=== PATIENT | male | born 1950 | race Caucasian/White ===

== ENCOUNTER 2020-11-14 13:57 | Outpatient (REF) | payer MEDICARE, SELFPAY ==
[2020-11-15 12:17] LABS: Free Prostate Spec Ag 0.6 ng/mL; Percent Free Prostate Spec Ag 25 % (calc) (>25); Prostate Specific Ag Total 2.4 ng/mL (< OR = 4.0)
== END 2020-11-14 13:58 | disposition home or self-care (01) ==
LOC: HO.LAB 13:57
PROVIDERS: PCP Internal Medicine; Visit Provider Urology
DX: R97.20 Elevated prostate specific antigen [PSA] (principal); Z12.5 Encounter for screening for malignant neoplasm of prostate
CPT/HCPCS: 84153; 84154

== ENCOUNTER → 2020-11-23 14:33 | Outpatient (BNVA) | payer MEDICARE, SELFPAY | PROVIDERS: PCP Internal Medicine; Referring Provider Internal Medicine; Visit Provider Urology | DX: N40.1 Benign prostatic hyperplasia with lower urinary tract symptoms (principal); N13.8 Other obstructive and reflux uropathy; Z12.5 Encounter for screening for malignant neoplasm of prostate | CPT/HCPCS: Q3014 ==

== ENCOUNTER 2020-11-28 10:34 | Outpatient (REF) | payer MEDICARE, SELFPAY ==
[2020-11-28 12:36] LABS: Anion Gap 12 (12-20); Blood Urea Nitrogen 14 mg/dL (9-16); Calcium 9.2 mg/dL (8.4-10.2); Carbon Dioxide 27 mmol/L (22-29); Chloride 107 mmol/L (96-108); Estimated Glomerular Filt Rate > 60; Phosphorus 2.8 mg/dL (2.7-4.5); Potassium 4.7 mmol/l (3.3-5.1); Sodium 141 mmol/L (135-145)
[2020-11-28 12:46] LABS: Renal w Reflex Lab Use Only Order verified
[2020-11-28 12:47] LABS: Creatinine Urine 156.05 mg/dL; Microalbum/Creatinine Ratio Ur 55.7 ug/mg cr
== END 2020-11-28 10:35 | disposition home or self-care (01) ==
LOC: HO.LAB 10:34
PROVIDERS: PCP Internal Medicine; Visit Provider Internal Medicine Nephrology
DX: N17.9 Acute kidney failure, unspecified (principal); E87.5 Hyperkalemia; I10 Essential (primary) hypertension
CPT/HCPCS: 36415; 80051; 82043; 82310; 82565; 84100; 84520

== ENCOUNTER 2021-04-27 10:39 | Outpatient (REF) | payer MEDICARE, SELFPAY ==
[2021-04-27 13:26] LABS: Alanine Aminotransferase 41 U/L (0-40); Albumin Level 4.6 g/dL (3.5-5.0); Alkaline Phosphatase 91 U/L (39-117); Anion Gap 13 (12-20); Aspartate Amino Transferase 36 U/L (5-37); Bilirubin Total 1.8 mg/dL (0.0-1.0); Blood Urea Nitrogen 14 mg/dL (9-16); Calcium 9.3 mg/dL (8.4-10.2); Carbon Dioxide 25 mmol/L (22-29); Chloride 104 mmol/L (96-108); Estimated Glomerular Filt Rate > 60; Glucose Random 117 mg/dL (60-115); Potassium 4.3 mmol/L (3.3-5.1); Sodium 138 mmol/L (135-145); Total Protein 6.9 g/dL (6.5-8.0)
== END 2021-04-27 10:40 | disposition home or self-care (01) ==
LOC: HO.LAB 10:39
PROVIDERS: PCP Internal Medicine; Visit Provider Internal Medicine
DX: Z00.01 Encounter for general adult medical examination with abnormal findings (principal); R79.89 Other specified abnormal findings of blood chemistry
CPT/HCPCS: 36415; 80053

== ENCOUNTER 2021-05-17 08:15 | Outpatient (REF) | payer MEDICARE, SELFPAY ==
[2021-05-17 09:55] LABS: Prostate Specific Antigen 2.83 ng/mL (<0.05-4.0)
== END 2021-05-17 08:16 | disposition home or self-care (01) ==
LOC: HO.LAB 08:15
PROVIDERS: PCP Internal Medicine; Visit Provider Urology
DX: N40.1 Benign prostatic hyperplasia with lower urinary tract symptoms (principal); N13.8 Other obstructive and reflux uropathy; Z12.5 Encounter for screening for malignant neoplasm of prostate
CPT/HCPCS: 36415; 84153

== ENCOUNTER → 2021-05-23 14:21 | Outpatient (BNVA) | payer MEDICARE, SELFPAY | PROVIDERS: Visit Provider Urology | DX: R97.20 Elevated prostate specific antigen [PSA] (principal); N40.1 Benign prostatic hyperplasia with lower urinary tract symptoms; N13.8 Other obstructive and reflux uropathy; N52.01 Erectile dysfunction due to arterial insufficiency; Z12.5 Encounter for screening for malignant neoplasm of prostate | CPT/HCPCS: 99212 ==

== ENCOUNTER 2021-07-13 08:24 | Outpatient (REF) | payer MEDICARE, SELFPAY ==
[2021-07-13 09:14] LABS: Anion Gap 13 (12-20); Blood Urea Nitrogen 13 mg/dL (9-16); Calcium 9.5 mg/dL (8.4-10.2); Carbon Dioxide 26 mmol/L (22-29); Chloride 108 mmol/L (96-108); Estimated Glomerular Filt Rate > 60; Phosphorus 3.3 mg/dL (2.7-4.5); Potassium 4.6 mmol/L (3.3-5.1); Sodium 142 mmol/L (135-145)
[2021-07-13 09:41] LABS: Renal w Reflex Lab Use Only Order verified
== END 2021-07-13 08:25 | disposition home or self-care (01) ==
LOC: HO.LAB 08:24
PROVIDERS: PCP Internal Medicine; Visit Provider Internal Medicine Nephrology
DX: N17.9 Acute kidney failure, unspecified (principal); E87.5 Hyperkalemia; I10 Essential (primary) hypertension
CPT/HCPCS: 36415; 80051; 82310; 82565; 84100; 84520

== ENCOUNTER 2021-08-01 09:19 | Outpatient (REF) | payer MEDICARE, SELFPAY ==
[2021-08-01 09:44] LABS: MANUAL DIFF FLAG NO
[2021-08-01 09:47] LABS: Basophils Absolute Auto 0.1 X10*3/uL (0.0-0.2); Eosinophils Absolute Auto 0.1 X10*3/uL (0.0-0.4); Eosinophils Percent Auto 1.8 % (0-4); Hemoglobin 15.1 g/dl (14.0-18.0); Imm Gran Abs Auto 0.02 X10*3/uL (0.00-0.03); Imm Gran Pct Auto 0.4 % (0.0-0.4); Lymphocytes Absolute Auto 1.5 X10*3/uL (1.2-4.9); Lymphocytes Percent Auto 29.8 % (20-40); Mean Corpuscular HGB Conc 34.3 g/dl (31.0-36.0); Mean Corpuscular Volume 93.2 fL (80-98); Mean Platelet Volume 8.6 fL (9.4-12.4); Monocytes Absolute Auto 0.6 X10*3/uL (0.1-1.2); Monocytes Percent Auto 12.7 % (2-11); Neutrophils Absolute Auto 2.7 X10*3/uL (2.0-8.3); Neutrophils Percent Auto 54.3 % (45-73); Platelet Count 241 X10*3/uL (160-400); Red Blood Count 4.72 X10*6/uL (4.60-5.80); Red Cell Distribution Width 12.7 % (11.0-16.0)
[2021-08-01 10:09] LABS: Alanine Aminotransferase 43 U/L (0-40); Albumin Level 4.6 g/dL (3.5-5.0); Alkaline Phosphatase 89 U/L (39-117); Anion Gap 14 (12-20); Aspartate Amino Transferase 41 U/L (5-37); Bilirubin Total 2.6 mg/dL (0.0-1.0); Blood Urea Nitrogen 11 mg/dL (9-16); Calcium 9.8 mg/dL (8.4-10.2); Carbon Dioxide 24 mmol/L (22-29); Chloride 105 mmol/L (96-108); Cholesterol 155 mg/dL; Estimated Glomerular Filt Rate > 60; Glucose Random 121 mg/dL (60-115); HDL Cholesterol 73 mg/dL; LDL Cholesterol Calculated 60 mg/dl; Potassium 4.4 mmol/L (3.3-5.1); Sodium 139 mmol/L (135-145); Total Protein 7.2 g/dL (6.5-8.0); Triglycerides 110 mg/dL
[2021-08-01 10:32] LABS: TSH reflex Free T4 1.52 uIU/mL (0.32-4.0); Vitamin D 25-OH Total 28.1 ng/mL (>30)
[2021-08-01 10:41] LABS: Creatinine Urine 129.31 mg/dL; Microalbum/Creatinine Ratio Ur 32.4 ug/mg cr
== END 2021-08-01 09:20 | disposition home or self-care (01) ==
LOC: HO.LAB 09:19
PROVIDERS: PCP Internal Medicine; Visit Provider Internal Medicine
DX: Z00.00 Encounter for general adult medical examination without abnormal findings (principal); I10 Essential (primary) hypertension; E78.2 Mixed hyperlipidemia; R53.83 Other fatigue; E55.9 Vitamin D deficiency, unspecified
CPT/HCPCS: 36415; 80053; 80061; 82043; 82306; 84443; 85025

== ENCOUNTER 2021-11-21 13:55 | Outpatient (REF) | payer MEDICARE, SELFPAY ==
[2021-11-21 15:35] LABS: PSA,Total (Free>4and<10) 2.14 ng/mL (0.00-4.00)
== END 2021-11-21 13:56 | disposition home or self-care (01) ==
LOC: HO.LAB 13:55
PROVIDERS: PCP Internal Medicine; Visit Provider Urology
DX: Z12.5 Encounter for screening for malignant neoplasm of prostate (principal); N13.8 Other obstructive and reflux uropathy; N40.1 Benign prostatic hyperplasia with lower urinary tract symptoms; R97.20 Elevated prostate specific antigen [PSA]
CPT/HCPCS: 36415; 84153

== ENCOUNTER → 2021-11-28 13:17 | Outpatient (BNVA) | payer MEDICARE, SELFPAY | PROVIDERS: PCP Internal Medicine; Visit Provider Urology | DX: Z13.89 Encounter for screening for other disorder (principal) | CPT/HCPCS: Q3014 ==

== ENCOUNTER 2022-10-22 14:22 | Outpatient (REF) | payer MEDICARE, SELFPAY ==
[2022-10-22 16:19] LABS: Anion Gap 15 (12-20); Blood Urea Nitrogen 20 mg/dL (9-16); Calcium 9.8 mg/dL (8.4-10.2); Carbon Dioxide 23 mmol/L (22-29); Chloride 111 mmol/L (96-108); Estimated Glomerular Filt Rate > 60; Potassium 4.7 mmol/L (3.3-5.1); Sodium 144 mmol/L (135-145)
[2022-10-22 16:29] LABS: Creatinine Urine 216.83 mg/dL; Microalbum/Creatinine Ratio Ur 135.5 ug/mg cr
== END 2022-10-22 14:23 | disposition home or self-care (01) ==
LOC: HO.LAB 14:22
PROVIDERS: PCP Internal Medicine; Visit Provider Internal Medicine Nephrology
DX: I10 Essential (primary) hypertension (principal)
CPT/HCPCS: 36415; 80051; 82043; 82310; 82565; 84520

== ENCOUNTER 2022-12-30 11:17 | Outpatient (REF) | payer MEDICARE, SELFPAY ==
[2022-12-30 12:04] LABS: Hemoglobin 14.6 g/dl (14.0-18.0); Mean Corpuscular Hemoglobin 32.2 pg (27.0-33.0); Mean Corpuscular Volume 94.9 fL (80.0-98.0); Mean Platelet Volume 8.6 fL (9.4-12.4); Platelet Count 243 X10*3/uL (160-400); Red Blood Count 4.53 X10*6/uL (4.60-5.80); White Blood Count 8.5 X10*3/uL (4.8-10.8)
[2022-12-30 12:45] LABS: Alanine Aminotransferase 35 U/L (0-40); Albumin Level 4.5 g/dL (3.5-5.0); Alkaline Phosphatase 95 U/L (39-117); Anion Gap 15 (12-20); Aspartate Amino Transferase 38 U/L (5-37); Bilirubin Total 1.5 mg/dL (0.0-1.0); Blood Urea Nitrogen 18 mg/dL (9-16); Calcium 9.7 mg/dL (8.4-10.2); Carbon Dioxide 23 mmol/L (22-29); Chloride 108 mmol/L (96-108); Cholesterol 191 mg/dL; Estimated Glomerular Filt Rate > 60; Glucose Random 103 mg/dL (60-115); HDL Cholesterol 84 mg/dL; LDL Cholesterol Calculated 92 mg/dl; Potassium 4.7 mmol/L (3.3-5.1); Sodium 141 mmol/L (135-145); Total Protein 6.9 g/dL (6.5-8.0); Triglycerides 75 mg/dL
[2022-12-30 13:01] LABS: Thyroid Stimulating Hormone 1.02 uIU/mL (0.32-4.0)
[2022-12-30 13:02] LABS: Creatinine Urine 196.49 mg/dL; Microalbum/Creatinine Ratio Ur 48.3 ug/mg cr
== END 2022-12-30 11:18 | disposition home or self-care (01) ==
LOC: HO.LAB 11:17
PROVIDERS: PCP Internal Medicine; Visit Provider Internal Medicine
DX: Z00.00 Encounter for general adult medical examination without abnormal findings (principal); R53.83 Other fatigue
CPT/HCPCS: 36415; 80053; 80061; 82043; 84443; 85027

== ENCOUNTER 2023-02-21 11:05 | Emergency (ER) | payer MEDICARE, SELFPAY ==
--- NOTE | ~2023-02-21 | XR_ITS ---
EXAMINATION: XR CHEST CLINICAL INFORMATION: SOB. Coughing up blood since last night COMPARISON: Chest 05/08/2010 TECHNIQUE: 2 views of the chest were obtained. FINDINGS: The lungs are well-expanded and clear. The heart size and pulmonary vascularity is normal. There is mild axial scoliosis dorsal spine. No aggressive lytic or sclerotic process seen. XR/XR chest 2V IMPRESSION: Unremarkable chest exam.
[2023-02-21 11:11] VITALS: BP 150/89; PULSE 74; RESP 18; TEMP 37.3; O2SAT 97; BMI 29.4
--- NOTE | 2023-02-21 11:13 | ED_ITS ---
HPI - General Adult General Chief complaint: Upper Respiratory Symptoms <JOEL Silverman - Last Filed: 02/21/23 12:51> Stated complaint: coughing up blood <JOEL Silverman - Last Filed: 02/21/23 12:51> Time Seen by Provider: 02/21/23 12:40 <JOEL Silverman - Last Filed: 02/21/23 12:51> Source: patient <Kev Quiroga MD - Last Filed: 02/21/23 13:33> Mode of arrival: ambulatory <Kev Quiroga MD - Last Filed: 02/21/23 13:33> Limitations: no limitations <Kev Quiroga MD - Last Filed: 02/21/23 13:33> History of Present Illness HPI narrative: 72-year-old male presents with cough. It is possible that he is coughing up some pink tinge bloody sputum. Is noted on edge shoe and pillow case today. He has had 2 weeks of upper respiratory symptoms including cough mucus production that is yellow in nature. No chest pain or shortness of breath, no fevers or chills. Patient denies any chest pain, night sweats, weight loss. He has had no recent imprisoned or 3rd world country visits. His was ill previously. Patient denies any bleeding or bruising elsewhere. Denies any melanotic stools. There are no clear relieving or exacerbating symptoms. Symptoms are described as mild to moderate nature. <Kev Quiroga MD - Last Filed: 02/21/23 13:33> Related Data Home medications: Home Medications Medication Instructions Recorded Confirmed amlodipine 2.5 mg tablet 2.5 mg PO DAILY 11/23/20 atenolol 50 mg tablet 150 mg PO DAILY 11/23/20 atorvastatin 40 mg tablet 40 mg PO DAILY 11/23/20 citalopram 20 mg tablet 60 mg PO Q OTHER DAY PRN 11/23/20 losartan 100 mg tablet 100 mg PO DAILY 11/23/20 amlodipine 5 mg tablet 5 mg PO DAILY 05/23/21 duloxetine 60 mg capsule,delayed 60 mg PO DAILY 05/23/21 release sertraline 50 mg tablet 50 mg PO DAILY 05/23/21 Previous Rx's Medication Instructions Recorded sildenafil 100 mg tablet 100 mg PO DAILY sexual activity 30 05/03/22 days #30 tabs finasteride 5 mg tablet 5 mg PO DAILY 90 days #90 tabs 12/30/22 azithromycin 250 mg tablet See Rx Instructions PO .COMPLEX #6 02/21/23 tabs <JOEL Silverman - Last Filed: 02/21/23 12:51> Allergies/adverse reactions: Allergies Allergy/AdvReac Type Severity Reaction Status Date / Time No Known Allergies Allergy Verified 11/28/21 13:19 <JOEL Silverman - Last Filed: 02/21/23 12:51> [facility] Social History Social History: Social History Advance Directives: No Advance Directives Information Provided: Yes <JOEL Silverman - Last Filed: 02/21/23 12:51> Physical Exam ED Vital Signs: Vital Signs - 24 hr 02/21/23 11:11 02/21/23 12:16 Temperature 99.1 F 97.8 F Pulse Rate 74 58 Respiratory Rate 18 17 Blood Pressure 150/89 H 158/83 H Pulse Oximetry 97 96 Oxygen Delivery Method Room Air Room Air BMI result Body Mass Index 29.4 <JOEL Silverman - Last Filed: 02/21/23 12:51> Vital Signs - 24 hr 02/21/23 11:11 02/21/23 12:16 Temperature 99.1 F 97.8 F Pulse Rate 74 58 Respiratory Rate 18 17 Blood Pressure 150/89 H 158/83 H Pulse Oximetry 97 96 Oxygen Delivery Method Room Air Room Air BMI result Body Mass Index 29.4 <Kev Quiroga MD - Last Filed: 02/21/23 13:33> GEN: Well developed, no acute distress, alert, oriented HEENT: Normocephalic, atraumatic, normal external ears, nose appears normal, no oropharyngeal edema or exudates Eyes: Normal to appearance Neck: Supple, no lymphadenopathy Respiratory: Talks in complete sentences, no respiratory distress, clear to auscultation bilaterally Cardiovascular: Regular rate and rhythm, no murmurs rubs or gallops Abdomen: Soft, nontender, nondistended, no guarding, no rebound Back: No CVA tenderness Extremities: No clubbing cyanosis or edema Neurologic: No focal neurologic deficits, cranial nerves 2-12 intact, strength is 5/5 bilaterally, gait normal Skin: No rash <Kev Quiroga MD - Last Filed: 02/21/23 13:33> Course Course Course Narrative: RME performed by Pili Han PA-C. Patient is a 72 year old assigned male at presenting to the emergency department with flu like symptoms and coughing up pink tinged sputum. Labs, imaging, and swab ordered. Patient placed back in the waiting room pending room availability and results. <JOEL Silverman - Last Filed: 02/21/23 12:51> Reevaluation(s) Reevaluation #1: Workup is complete. Chest x-ray revealed no acute cardiopulmonary disease. Lab work was unremarkable for significant elevated white blood cell count or other findings. This was discussed with patient. Will treat for bronchitis given 2 weeks of cough and mucus production. <Kev Quiroga MD - Last Filed: 02/21/23 13:33> Medical Decision Making Medical Decision Making [facility] Narrative: 72-year-old male presents with cough mucus production. Possible is blood tinged. Examination was unremarkable. Differential includes bronchitis, pneumonia, CHF, less likely tuberculosis or lung cancer. Patient will have l aboratory analysis, chest x-ray and re-evaluation. <Kev Quiroga MD - Last Filed: 02/21/23 13:33> Differential Diagnosis Differential Diagnoses: The differential diagnosis associated with the presentation includes (Bronchitis, pneumonia, CHF, tuberculosis, lung cancer, pulmonary mass) <Kev Quiroga MD - Last Filed: 02/21/23 13:33> Admission/Observation Consideration of admission/observation: Escalation of care including admission/observation considered <Kev Quiroga MD - Last Filed: 02/21/23 13:33> Lab Data [facility] Lab Attestation statement: I reviewed the patient's lab results. <Kev Quiroga MD - Last Filed: 02/21/23 13:33> Result Diagrams: 02/21/23 12:08 02/21/23 12:08 <JOEL Silverman - Last Filed: 02/21/23 12:51> Labs: Lab Results 02/21/23 02/21/23 02/21/23 Range/Units 12:08 12:08 12:08 WBC 5.7 (4.8-10.8) X10*3/uL RBC 4.31 L (4.60-5.80) X10*6/uL Hgb 14.0 (14.0-18.0) g/dl Hct 41.3 L (42.0-52.0) % MCV 95.8 (80.0-98.0) fL MCH 32.5 (27.0-33.0) pg MCHC 33.9 (31.0-36.0) g/dl RDW 12.8 (11.0-16.0) % Plt Count 244 (160-400) X10*3/uL MPV 8.6 L (9.4-12.4) fL Immature Gran % (Auto) 0.2 (0.0-0.4) % Neut % (Auto) 67.7 (45-73) % Lymph % (Auto) 18.9 L (20-40) % Nash % (Auto) 10.4 (2-11) % Eos % (Auto) 1.2 (0-4) % Baso % (Auto) 1.6 (0-2) % Lymph # (Auto) 1.1 L (1.2-4.9) X10*3/uL Nash # (Auto) 0.6 (0.1-1.2) X10*3/uL Eos # (Auto) 0.1 (0.0-0.4) X10*3/uL Baso # (Auto) 0.1 (0.0-0.2) X10*3/uL Abs Immat Gran (auto) 0.01 (0.00-0.03) X10*3/uL Absolute Neuts (auto) 3.8 (2.0-8.3) x10*3/uL Absolute Nucleated RBC 0.000 (0.0-0.012) X10*3/uL Nucleated RBC % (auto) 0.0 (0.0-0.2) /100WBC Sodium 141 (135-145) mmol/L Potassium 4.7 (3.3-5.1) mmol/L Chloride 110 H (96-108) mmol/L Carbon Dioxide 23 (22-29) mmol/L Anion Gap 13 (12-20) BUN 20 H (9-16) mg/dL Creatinine 0.81 (0.5-1.4) mg/dL Estim Creat Clear Calc 94.4 Estimated GFR > 60 Random Glucose 98 (60-115) mg/dL Calcium 9.6 (8.4-10.2) mg/dL Magnesium 1.7 (1.6-2.6) mg/dL Total Bilirubin 1.5 H (0.0-1.0) mg/dL AST 45 H (5-37) U/L ALT 39 (0-40) U/L Alkaline Phosphatase 94 (39-117) U/L B-Natriuretic Peptide 76 (<100) pg/mL Total Protein 7.0 (6.5-8.0) g/dL Albumin 4.5 (3.5-5.0) g/dL Influenza Type A (PCR) (Negative) Influenza Type B (PCR) (Negative) RSV RNA Qual (PCR) (Negative) SARS-CoV-2 RNA (RT-PCR) (Negative) 02/21/23 Range/Units 12:08 WBC (4.8-10.8) X10*3/uL RBC (4.60-5.80) X10*6/uL Hgb (14.0-18.0) g/dl Hct (42.0-52.0) % MCV (80.0-98.0) fL MCH (27.0-33.0) pg MCHC (31.0-36.0) g/dl RDW (11.0-16.0) % Plt Count (160-400) X10*3/uL MPV (9.4-12.4) fL Immature Gran % (Auto) (0.0-0.4) % Neut % (Auto) (45-73) % Lymph % (Auto) (20-40) % Nash % (Auto) (2-11) % Eos % (Auto) (0-4) % Baso % (Auto) (0-2) % Lymph # (Auto) (1.2-4.9) X10*3/uL Nash # (Auto) (0.1-1.2) X10*3/uL Eos # (Auto) (0.0-0.4) X10*3/uL Baso # (Auto) (0.0-0.2) X10*3/uL Abs Immat Gran (auto) (0.00-0.03) X10*3/uL Absolute Neuts (auto) (2.0-8.3) x10*3/uL Absolute Nucleated RBC (0.0-0.012) X10*3/uL Nucleated RBC % (auto) (0.0-0.2) /100WBC Sodium (135-145) mmol/L Potassium (3.3-5.1) mmol/L Chloride (96-108) mmol/L Carbon Dioxide (22-29) mmol/L Anion Gap (12-20) BUN (9-16) mg/dL Creatinine (0.5-1.4) mg/dL Estim Creat Clear Calc Estimated GFR Random Glucose (60-115) mg/dL Calcium (8.4-10.2) mg/dL Magnesium (1.6-2.6) mg/dL Total Bilirubin (0.0-1.0) mg/dL AST (5-37) U/L ALT (0-40) U/L Alkaline Phosphatase (39-117) U/L B-Natriuretic Peptide (<100) pg/mL Total Protein (6.5-8.0) g/dL Albumin (3.5-5.0) g/dL Influenza Type A (PCR) NEGATIVE (Negative) Influenza Type B (PCR) NEGATIVE (Negative) RSV RNA Qual (PCR) NEGATIVE (Negative) SARS-CoV-2 RNA (RT-PCR) NEGATIVE (Negative) <JOEL Silverman - Last Filed: 02/21/23 12:51> Lab Results 02/21/23 02/21/23 02/21/23 Range/Units 12:08 12:08 12:08 WBC 5.7 (4.8-10.8) X10*3/uL RBC 4.31 L (4.60-5.80) X10*6/uL Hgb 14.0 (14.0-18.0) g/dl Hct 41.3 L (42.0-52.0) % MCV 95.8 (80.0-98.0) fL MCH 32.5 (27.0-33.0) pg MCHC 33.9 (31.0-36.0) g/dl RDW 12.8 (11.0-16.0) % Plt Count 244 (160-400) X10*3/uL MPV 8.6 L (9.4-12.4) fL Immature Gran % (Auto) 0.2 (0.0-0.4) % Neut % (Auto) 67.7 (45-73) % Lymph % (Auto) 18.9 L (20-40) % Nash % (Auto) 10.4 (2-11) % Eos % (Auto) 1.2 (0-4) % Baso % (Auto) 1.6 (0-2) % Lymph # (Auto) 1.1 L (1.2-4.9) X10*3/uL Nash # (Auto) 0.6 (0.1-1.2) X10*3/uL Eos # (Auto) 0.1 (0.0-0.4) X10*3/uL Baso # (Auto) 0.1 (0.0-0.2) X10*3/uL Abs Immat Gran (auto) 0.01 (0.00-0.03) X10*3/uL Absolute Neuts (auto) 3.8 (2.0-8.3) x10*3/uL Absolute Nucleated RBC 0.000 (0.0-0.012) X10*3/uL Nucleated RBC % (auto) 0.0 (0.0-0.2) /100WBC Sodium 141 (135-145) mmol/L Potassium 4.7 (3.3-5.1) mmol/L Chloride 110 H (96-108) mmol/L Carbon Dioxide 23 (22-29) mmol/L Anion Gap 13 (12-20) BUN 20 H (9-16) mg/dL Creatinine 0.81 (0.5-1.4) mg/dL Estim Creat Clear Calc 94.4 Estimated GFR > 60 Random Glucose 98 (60-115) mg/dL Calcium 9.6 (8.4-10.2) mg/dL Magnesium 1.7 (1.6-2.6) mg/dL Total Bilirubin 1.5 H (0.0-1.0) mg/dL AST 45 H (5-37) U/L ALT 39 (0-40) U/L Alkaline Phosphatase 94 (39-117) U/L B-Natriuretic Peptide 76 (<100) pg/mL Total Protein 7.0 (6.5-8.0) g/dL Albumin 4.5 (3.5-5.0) g/dL Influenza Type A (PCR) (Negative) Influenza Type B (PCR) (Negative) RSV RNA Qual (PCR) (Negative) SARS-CoV-2 RNA (RT-PCR) (Negative) 02/21/23 Range/Units 12:08 WBC (4.8-10.8) X10*3/uL RBC (4.60-5.80) X10*6/uL Hgb (14.0-18.0) g/dl Hct (42.0-52.0) % MCV (80.0-98.0) fL MCH (27.0-33.0) pg MCHC (31.0-36.0) g/dl RDW (11.0-16.0) % Plt Count (160-400) X10*3/uL MPV (9.4-12.4) fL Immature Gran % (Auto) (0.0-0.4) % Neut % (Auto) (45-73) % Lymph % (Auto) (20-40) % Nash % (Auto) (2-11) % Eos % (Auto) (0-4) % Baso % (Auto) (0-2) % Lymph # (Auto) (1.2-4.9) X10*3/uL Nash # (Auto) (0.1-1.2) X10*3/uL Eos # (Auto) (0.0-0.4) X10*3/uL Baso # (Auto) (0.0-0.2) X10*3/uL Abs Immat Gran (auto) (0.00-0.03) X10*3/uL Absolute Neuts (auto) (2.0-8.3) x10*3/uL Absolute Nucleated RBC (0.0-0.012) X10*3/uL Nucleated RBC % (auto) (0.0-0.2) /100WBC Sodium (135-145) mmol/L Potassium (3.3-5.1) mmol/L Chloride (96-108) mmol/L Carbon Dioxide (22-29) mmol/L Anion Gap (12-20) BUN (9-16) mg/dL Creatinine (0.5-1.4) mg/dL Estim Creat Clear Calc Estimated GFR Random Glucose (60-115) mg/dL Calcium (8.4-10.2) mg/dL Magnesium (1.6-2.6) mg/dL Total Bilirubin (0.0-1.0) mg/dL AST (5-37) U/L ALT (0-40) U/L Alkaline Phosphatase (39-117) U/L B-Natriuretic Peptide (<100) pg/mL Total Protein (6.5-8.0) g/dL Albumin (3.5-5.0) g/dL Influenza Type A (PCR) NEGATIVE (Negative) Influenza Type B (PCR) NEGATIVE (Negative) RSV RNA Qual (PCR) NEGATIVE (Negative) SARS-CoV-2 RNA (RT-PCR) NEGATIVE (Negative) <Kev Quiroga MD - Last Filed: 02/21/23 13:33> Independent Interpretation I performed an independent interpretation of an: Plain X-Ray (No acute cardiopulmonary disease) <Kev Quiroga MD - Last Filed: 02/21/23 13:33> Independent Historian Clinical information obtained from an independent historian. History obtained from or confirmed by: Spouse <Kev Quiroga MD - Last Filed: 02/21/23 13:33> Prescription Management I considered prescription management with: Antibiotic <Kev Quiroga MD - Last Filed: 02/21/23 13:33> Discharge Plan Discharge Clinical Impression: Bronchitis <JOEL Silverman - Last Filed: 02/21/23 12:51> Patient Disposition: Home, Self-Care <JOEL Silverman - Last Filed: 02/21/23 12:51> Instructions: Acute Bronchitis (ED) <JOEL Silverman - Last Filed: 02/21/23 12:51> Additional Instructions: You were seen today for presumptive hemoptysis. This is coughing up of blood. Your examination was unremarkable. Chest x-ray did not reveal any pneumonia. It is still possible that this could be a bronchitis infection and after 2 weeks of symptoms, is reasonable to start oral antibiotics. Should her symptoms worsen, develop worsening coughing up of blood or any other concerning symptoms, please return for re-evaluation. <JOEL Silverman - Last Filed: 02/21/23 12:51> Prescriptions: New azithromycin 250 mg tablet See Rx Instructions .ROUTE .COMPLEX Qty: 6 0RF Rx Instructions: For 250 mg dose pack: take 500 mg today (day 1), then 250 mg for 4 days (days 2-5) No Action sildenafil 100 mg tablet 100 mg PO DAILY 30 Days Qty: 30 5RF Rx Instructions: administer 60 minutes before intended activity finasteride 5 mg tablet 5 mg PO DAILY 90 Days Qty: 90 1RF atorvastatin 40 mg tablet 40 mg PO DAILY atenolol 50 mg tablet 150 mg PO DAILY losartan 100 mg tablet 100 mg PO DAILY amlodipine 2.5 mg tablet 2.5 mg PO DAILY citalopram 20 mg tablet 60 mg PO Q OTHER DAY PRN sertraline 50 mg tablet 50 mg PO DAILY amlodipine 5 mg tablet 5 mg PO DAILY duloxetine 60 mg capsule,delayed release(DR/EC) 60 mg PO DAILY <JOEL Silverman - Last Filed: 02/21/23 12:51> Referrals: Koko Cage MD [Primary Care Provider] - 5 days <JOEL Silverman - Last Filed: 02/21/23 12:51> Interventions: ED Discharge Assessment Last Done: 02/21/23 13:16 <JOEL Silverman - Last Filed: 02/21/23 12:51> Discharge Date/Time: 02/21/23 13:17 <JOEL Silverman - Last Filed: 02/21/23 12:51>
[2023-02-21 12:16] VITALS: BP 158/83; PULSE 58; RESP 17; TEMP 36.6; O2SAT 96
[2023-02-21 12:24] LABS: MANUAL DIFF FLAG NO
[2023-02-21 12:25] LABS: Basophils Absolute Auto 0.1 X10*3/uL (0.0-0.2); Basophils Percent Auto 1.6 % (0-2); Eosinophils Absolute Auto 0.1 X10*3/uL (0.0-0.4); Eosinophils Percent Auto 1.2 % (0-4); Hematocrit 41.3 % (42.0-52.0); Imm Gran Abs Auto 0.01 X10*3/uL (0.00-0.03); Imm Gran Pct Auto 0.2 % (0.0-0.4); Lymphocytes Absolute Auto 1.1 X10*3/uL (1.2-4.9); Lymphocytes Percent Auto 18.9 % (20-40); Mean Corpuscular HGB Conc 33.9 g/dl (31.0-36.0); Mean Corpuscular Hemoglobin 32.5 pg (27.0-33.0); Mean Corpuscular Volume 95.8 fL (80.0-98.0); Mean Platelet Volume 8.6 fL (9.4-12.4); Monocytes Absolute Auto 0.6 X10*3/uL (0.1-1.2); Monocytes Percent Auto 10.4 % (2-11); Neutrophils Absolute Auto 3.8 x10*3/uL (2.0-8.3); Neutrophils Percent Auto 67.7 % (45-73); Platelet Count 244 X10*3/uL (160-400); Red Blood Count 4.31 X10*6/uL (4.60-5.80); Red Cell Distribution Width 12.8 % (11.0-16.0); White Blood Count 5.7 X10*3/uL (4.8-10.8)
--- OUTSIDE RECORDS SUMMARY | 2023-02-21 12:32 | XMS_ITS | Continuity of Care Document ---
Author Name Unknown Organization [facility] Address [address] [place] [id number]- Care Team Providers Care Clay Artist Name Role Phone Koko Cage MD Primary Care Physician Encounter [facility] Date(s): 12/07/19 - 12/14/[address] [address]- [facility] Attending Physician: Not on Staff, Attending MD Allergies, Adverse Reactions, Alerts Substance Reaction Severity Status NKA Active Medications acetaminophen 325 mg oral tablet 650 mg, By Mouth, Every 6 hours, Refills 0, Maintenance, 08/08/17 10:35:57 Start Date: 08/08/17 Status: Ordered atenolol 100 mg oral tablet = 100 mg, By Mouth, Daily, 0 Refills, Maintenance, 08/08/17 10:35:31 EDT, Tablet Start Date: 08/08/17 Status: Ordered atorvastatin 40 mg oral tablet 1 tablet = 40 mg, By Mouth, Daily, # 30 tablet, 0 Refills, Maintenance, Tablet Start Date: 02/27/19 Status: Ordered celecoxib 200 mg oral capsule 1 capsule = 200 mg, By Mouth, Daily, # 30 capsule, 0 Refills, Maintenance, 11/05/19 11:39:00 EST, Capsule Start Date: 11/05/19 Stop Date: 12/05/19 Status: Ordered citalopram 20 mg oral tablet 30 mg, By Mouth, Daily, Refills 0, Maintenance, 08/08/17 10:35:47 Start Date: 08/08/17 Status: Ordered docusate sodium 100 mg oral capsule 100 mg, 1, capsule, By Mouth, 2 times a day, # 60 capsule, Refills 0, Tot. Refills 0, Maintenance, 11/05/19 11:40:00 EST, Print Requisition Start Date: 11/05/19 Stop Date: 12/05/19 Status: Ordered doxycycline hyclate 100 mg oral capsule 1 capsule = 100 mg, By Mouth, Daily, for 30 days, # 30 capsule, 3 Refills, Acute 03/29/20 13:53:00 EDT, 11/30/19 13:53:00 EST, Capsule, [id number], 178, cm, 11/30/19 13:41:00 EST, Height, 87, kg, 10/30/19 16:40:00 EST, Dry Weight Start Date: 11/30/19 Stop Date: 03/29/20 Status: Ordered doxycycline hyclate 100 mg oral tablet 1 tablet = 100 mg, By Mouth, 2 times a day, 0 Refills, Maintenance, 11/30/19 13:46:00 EST Start Date: 11/30/19 Status: Ordered losartan 25 mg oral tablet 1 tablet = 25 mg, By Mouth, Daily, # 30 tablet, 0 Refills, Maintenance, 10/31/19 10:35:46 EST, Tablet Start Date: 10/31/19 Status: Ordered Maalox Plus Liquid 30 mL, By Mouth, Every 4 hours, PRN Other, Heartburn, 0 Refills, Maintenance, 11/05/19 11:19:00 EST, Suspension Start Date: 11/05/19 Status: Ordered oxyCODONE 10 mg oral tablet 1 tablet = 10 mg, By Mouth, Every 3 hours, PRN Pain , Moderate, 0 Refills, Maintenance, 11/05/19 11:19:00 EST, Tablet, Partial fill upon patient request Start Date: 11/05/19 Status: Ordered pantoprazole 40 mg oral delayed release tablet = 40 mg, By Mouth, Daily in AM, 0 Refills, Maintenance, 11/05/19 11:19:00 EST, EC Tablet Start Date: 11/05/19 Status: Ordered warfarin 1 mg oral tablet See Instructions, Take 1-10 tablets By Mouth Daily as directed by TIFF[facility], # 150 tablet, 0 Refills, Maintenance, 11/05/19 12:06:00 EST, Tablet Start Date: 11/05/19 Stop Date: 12/05/19 Status: Ordered Problem List Condition Effective Dates Status Health Status Inform ant MRSA bacteremia(Confirmed) Active Localized osteoarthritis of right knee(Confirmed) 08/06/17 Active MRSA infection(Confirmed) Active Therapeutic drug monitoring(Confirmed) Active 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
--- OUTSIDE RECORDS SUMMARY | 2023-02-21 12:32 | XMS_ITS | Continuity of Care Document ---
Author Name Unknown Organization [facility] Address [address] [place] [id number]- Care Team Providers Care Lead Process Engineer Name Role Phone Koko Cage MD Primary Care Physician Encounter [facility] [place] ACCT R [id number] Date(s): 11/30/19 - 12/10/19 [facility] [address] [place] [address]- [facility] Attending Physician: Kleber Palomino Admitting Physician: Admtr, Kleber Referring Physician: Admtr, Ar8 Allergies, Adverse Reactions, Alerts Substance Reaction Severity [...] capsule, Refills 0, Tot. Refills 0, Maintenance, 12/20/19 11:40:00 EST, Print Requisition Start Date: 11/05/19 Stop Date: 12/05/19 Status: Ordered doxycycline hyclate 100 mg oral capsule 1 capsule = 100 mg, By Mouth, Daily, for 30 days, # 30 capsule, 3 Refills, Acute 03/29/20 13:53:00 EDT, 11/30/19 13:53:00 EST, Capsule, [facility][id number], 178, cm, 11/30/19 13:41:00 EST, Height, 87, [...] tablets By Mouth Daily as directed by [facility], # 150 tablet, 0 Refills, Maintenance, 11/05/19 [...]
--- OUTSIDE RECORDS SUMMARY | 2023-02-21 12:32 | XMS_ITS | Continuity of Care Document ---
Author Name Unknown Organization [facility] Address [address] [place] [address]- Care Team Providers Care Director Of Social Work Name Role Phone Koko Cage MD Primary Care Physician Encounter 11/06/19 - 12/16/19 [facility] [address] [place] [address]- [facility] Discharge Disposition: GOALS MET Allergies, Adverse Reactions, Alerts Substance Reaction Severity [...] 03/29/20 13:53:00 EDT, 11/30/19 13:53:00 EST, Capsule, [id number], 178, cm, 11/30/19 13:41:00 EST, Height, 87, [...] bacteremia(Confirmed) Active Localized osteoarthritis of right knee(Confirmed) 9/20/17 Active MRSA infection(Confirmed) Active Therapeutic drug monitoring(Confirmed) Active 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
--- OUTSIDE RECORDS SUMMARY | 2023-02-21 12:32 | XMS_ITS | Continuity of Care Document ---
Author Name Unknown Organization [facility] Address [address] [place] [address]- Care Team Providers Care Director Organizational Name Role Phone Koko Cage MD Primary Care Physician [phone] Encounter [facility] [place] ACCT R [id number] Date(s): 10/12/19 - 02/03/20 [facility] [address] [place] [phone]- [facility] Attending Physician: Guanako Quezada MD Admitting Physician: Guanako Quezada MD Allergies, Adverse Reactions, Alerts Substance Reaction Severity Status NKA Active Medications atenolol 100 mg oral tablet = 100 [...] 08/08/17 10:35:47 Start Date: 08/08/17 Status: Ordered doxycycline hyclate 100 mg oral capsule 1 capsule = 100 mg, By Mouth, Daily, for 30 days, # 30 capsule, 3 Refills, Acute 03/29/20 13:53:00 EDT, 11/30/19 13:53:00 EST, Capsule, [facility] #[id number], 178, cm, 11/30/19 13:41:00 EST, Height, 87, kg, 10/30/19 16:40:00 EST, Dry Weight Start Date: 11/30/19 Stop Date: 03/29/20 Status: Ordered doxycycline hyclate 100 mg oral tablet 1 tablet = 100 mg, By Mouth, 2 times a day, # 60 tablet, 1 Refills, Maintenance, 01/24/20 10:46:00 EDT, [id number], 178, cm, 01/12/20 10:40:00 EST, Height, 87, kg, 10/30/19 16:40:00 EST, Dry Weight Start Date: 01/24/20 Status: Ordered losartan 25 mg oral tablet 1 tablet = 25 mg, By Mouth, Daily, # 30 tablet, 0 Refills, Maintenance, 10/31/19 10:35:46 EST, Tablet Start Date: 10/31/19 Status: Ordered pantoprazole 40 mg oral delayed release tablet = 40 mg, By Mouth, Daily in AM, 0 Refills, Maintenance, 11/05/19 11:19:00 EST, EC Tablet Start Date: 11/05/19 Status: Ordered Problem List Condition Effective Dates Status Health Status Inform ant MRSA bacteremia(Confirmed) Active Localized osteoarthritis of right knee(Confirmed) 08/06/17 Active MRSA infection(Confirmed) Active Therapeutic drug monitoring(Confirmed) Active 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
--- OUTSIDE RECORDS SUMMARY | 2023-02-21 12:32 | XMS_ITS | Continuity of Care Document ---
Author Name Unknown Organization [facility] Address [address] [place] [id number]- Care Team Providers Care Computer Analyst Name Role Phone Koko Cage MD Primary Care Physician [phone] [place] [facility] [place] [id number] Date(s): 01/11/20 - 01/21/20 [facility] [address] [place] [address]- [facility] Attending Physician: AdmKleber babin Admitting Physician: Admtr, Ar8 Referring Physician: Admtr, Ar8 Allergies, Adverse Reactions, [...] 03/29/20 13:53:00 EDT, 11/30/19 13:53:00 EST, Capsule, [facility] #[id number], 178, cm, 11/30/19 13:41:00 EST, Height, 87, [...]
--- OUTSIDE RECORDS SUMMARY | 2023-02-21 12:32 | XMS_ITS | Continuity of Care Document ---
Author Name Unknown Organization [facility] Address [address] [place] [address]- Care Team Providers Care Gyro Mechanic Name Role Phone Koko Cage MD Primary Care Physician [phone] Encounter [facility] [place]CT R [id number] Date(s): 04/25/20 - 06/15/20 [facility] [address] [place] [address]- [facility] Attending Physician: Guanako Quezada MD Admitting Physician: [...] mg, By Mouth, 2 times a day, PATIENT NEEDS TO MAKE FOLLOWUP APPOINTMENT, # 60 tablet, 0 Refills, Maintenance, 03/24/20 14:37:00 EDT, Tablet, [facility] #[id number], 178, cm, 02/11/20 10:34:00 EDT, Height, 87, kg, 10/30/19 16:40:00... 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
--- OUTSIDE RECORDS SUMMARY | 2023-02-21 12:32 | XMS_ITS | Continuity of Care Document ---
Author Name Unknown Organization [facility] Address [address] [place] [address]- Care Team Providers Care Superintendent Plant Name Role Phone Koko Cage MD Primary Care Physician [phone] Encounter [facility] [place] ACCT R [id number] Date(s): 05/16/20 - 06/15/20 [facility] [address] [place] [address]- [facility] Attending Physician: AdmKleber babin Admitting Physician: Admtr, [...] 0 Refills, Maintenance, 03/24/20 14:37:00 EDT, Tablet, [facility] #[id number], 178, cm, 02/11/20 10:34:00 EDT, Height, 87, kg, 10/30/19 16:40:00... Start Date: 03/24/20 Stop Date: 04/19/20 Status: Ordered doxycycline hyclate 100 mg oral tablet 1 tablet = 100 mg, By Mouth, 2 times a day, # 60 tablet, 1 Refills, Maintenance, 01/24/20 10:46:00 EDT, Tablet, [facility] #[id number], 178, cm, 01/12/20 10:40:00 EST, Height, 87, [...]
--- OUTSIDE RECORDS SUMMARY | 2023-02-21 12:32 | XMS_ITS | Continuity of Care Document ---
Author Name Unknown Organization [facility] ter Address [address] [place] [address]- Care Team Providers Care Middle School Pe Teacher Name Role Phone Koko Cage MD Primary Care Physician Encounter [facility] [place] Date(s): 11/15/19 - 11/15/[address] [address]- [facility] Attending Physician: Not on Staff, Attending MD [...] capsule = 200 mg, By Mouth, Daily, 0 Refills, Maintenance, 11/05/19 11:19:00 EST, Capsule Start Date: 11/05/19 Status: Ordered celecoxib 200 mg oral capsule 1 capsule = 200 mg, By Mouth, Daily, # 30 capsule, 0 Refills, Maintenance, 11/05/19 11:39:00 EST, Capsule Start Date: 11/05/19 Stop Date: 12/05/19 Status: Ordered citalopram 20 mg oral tablet 30 mg, By Mouth, Daily, Refills 0, Maintenance, 08/08/17 10:35:47 Start Date: 08/08/17 Status: Ordered Colace Capsule 100 mg, 1, capsule, By Mouth, 2 times a day, Refills 0, Maintenance, 11/05/19 11:19:00 EST Start Date: 11/05/19 Status: Ordered docusate sodium 100 mg oral capsule 100 mg, 1, capsule, By Mouth, 2 times a day, # 60 capsule, Refills 0, Tot. Refills 0, Maintenance, 11/05/19 11:40:00 EST, Print Requisition Start Date: 11/05/19 Stop Date: 12/05/19 Status: Ordered losartan 25 mg oral tablet 1 tablet = 25 mg, By Mouth, Daily, # 30 tablet, 0 Refills, Maintenance, 10/31/19 10:35:46 EST, Tablet Start Date: 10/31/19 Status: Ordered Maalox Plus Liquid 30 mL, By Mouth, Every 4 hours, PRN Other, Heartburn, 0 Refills, Maintenance, 11/05/19 11:19:00 EST, Suspension Start Date: 11/05/19 Status: Ordered Milk of Magnesia Liquid 30 mL, By Mouth, Daily, PRN Constipation, 0 Refills, Maintenance, 11/05/19 11:19:00 EST, Suspension Start Date: 11/05/19 Status: Ordered MiraLax Powder 1 pack/packet = 17 Gm, By Mouth, Daily, 0 Refills, Maintenance, 11/05/19 11:19:00 EST, Powder Start Date: 11/05/19 Status: Ordered oxyCODONE 10 mg oral tablet 1 tablet = 10 mg, By Mouth, Every 3 hours, PRN Pain , Moderate, 0 Refills, Maintenance, 11/05/19 11:19:00 EST, Tablet, Partial fill upon patient request Start Date: 11/05/19 Status: Ordered oxyCODONE 5 mg oral tablet 5 mg, 1, tablet, By Mouth, Every 3 hours, PRN, Refills 0, Tot. Refills 0, Maintenance, Pain , Mild,11/05/19 11:19:00 EST, Partial fill upon patient request Start Date: 11/05/19 Status: Ordered pantoprazole 40 mg oral delayed release tablet = 40 mg, By Mouth, Daily in AM, 0 Refills, Maintenance, 11/05/19 11:19:00 EST, EC Tablet Start Date: 11/05/19 Status: Ordered pantoprazole 40 mg oral delayed release tablet = 40 mg, By Mouth, Daily in AM, # 30 tablet, 0 Refills, Maintenance, 11/05/19 11:45:00 EST, EC Tablet Start Date: 11/05/19 Stop Date: 12/05/19 Status: Ordered senna 187 mg oral tablet 1 tablet = 8.6 mg, By Mouth, Daily at bedtime, 0 Refills, Maintenance, 11/05/19 11:20:00 EST, Tablet Start Date: 11/05/19 Status: Ordered traMADol 50 mg oral tablet 1 tablet = 50 mg, By Mouth, Every 6 hours, PRN Pain , Moderate, 0 Refills, Maintenance, 11/05/19 11:20:00 EST, Tablet Start Date: 11/05/19 Status: Ordered warfarin 1 mg oral tablet See Instructions, Take 1-10 tablets By Mouth Daily as directed by TIFFANY, # 150 tablet, 0 Refills, Maintenance, 11/05/19 12:06:00 EST, Tablet Start Date: 11/05/19 Stop Date: 12/05/19 Status: Ordered warfarin 5 mg oral tablet 1 tablet = 5 mg, By Mouth, Once, 0 Refills, Maintenance, 11/05/19 12:03:00 EST, Tablet Start Date: 11/05/19 Status: Ordered Problem List Condition Effective Dates Status Health Status Inform ant Localized osteoarthritis of right knee(Confirmed) 08/06/17 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
--- OUTSIDE RECORDS SUMMARY | 2023-02-21 12:32 | XMS_ITS | Continuity of Care Document ---
Author Name Unknown Organization [facility] ter Address [address] [place] [address]- Care Team Providers Care Planning Aide Name Role Phone Koko Cage MD Primary Care Physician [phone] Encounter [facility] [place] Date(s): 11/22/19 - 11/22/[address] [address]- [facility] Attending Physician: Not on Staff, Attending MD [...]
--- OUTSIDE RECORDS SUMMARY | 2023-02-21 12:32 | XMS_ITS | Continuity of Care Document ---
Author Name Unknown Organization [facility] ter Address [address] [place] [address]- Care Team Providers Care Engraver Letter Name Role Phone Koko Cage MD Primary Care Physician [phone] En[place] [facility] [place] Date(s): 10/30/19 - 11/05/[address] [address]- [facility] Discharge Disposition: A-Transfer VNA/Home Health Attending Physician: Edwin COOPER, Smith Muñoz Admitting Physician: Ankit Barney MD Referring Physician: Not on Staff, Referring MD Allergies, Adverse Reactions, Alerts Substance Reaction [...] request Start Date: 11/05/19 Status: Ordered oxyCODONE 10 mg oral tablet See Instructions, PRN Pain , Moderate, Take 0.5-1 tablet (5-10 mg) By Mouth Every 3 hours as neededmild to moderate pain, # 56 tablet, 0 Refills, Acute 11/12/19 11:45:00 EST, 11/05/19 11:40:00 EST, Tablet, Partial fill upon patient request Start Date: 11/05/19 Stop Date: 11/12/19 Status: Ordered oxyCODONE 5 mg oral tablet [...] Status: Ordered traMADol 50 mg oral tablet See Instructions, PRN Pain , Moderate, Take 1-2 tablets By Mouth Every 6 hours as needed mild pain,# 56 tablet, 0 Refills, Acute 11/12/19 11:46:00 EST, 11/05/19 11:46:00 EST, Tablet Start Date: 11/05/19 Stop Date: 11/12/19 Status: Ordered warfarin 1 mg oral tablet [...] of prosthetic righ t knee joint(Confirmed) Active Results Orders for Microbiology Reports Name Date Blood Culture 11/02/19 Blood Culture #2 11/02/19 Anaerobic Culture (ANAEROBIC CULTURE) Anaerobic Culture (ANAEROBIC CULTURE) Anaerobic Culture (ANAEROBIC CULTURE) Tissue Culture w/ Gram Smear (TISSUE/BIO PSY CULT.) 11/01/19 Tissue Culture w/ Gram Smear (TISSUE/BIO PSY CULT.) 11/01/19 Tissue Culture w/ Gram Smear (TISSUE/BIO PSY CULT.) 11/01/19 Sterile Body Fluid Culture W/ Gram Smear 10/30/19 Anaerobic Culture (ANAEROBIC CULTURE) Microbiology Reports (Most Recent Ten) TEST:Blood Culture, Second Order STATUS:Unauthenticated BODY SITE: SOURCE:Blood COLLECTED DATE/TIME:11/02/19 8:47 AM Blood Culture, Second Order SPECIMEN DESCRIPTION : BLOOD LAC SPECIAL REQUESTS : NONE CULTURE : NO GROWTH 3 DAYS REPORT STATUS : PRELIMINARY REPORT TEST:Blood Culture STATUS:Unauthenticated BODY SITE: SOURCE:Blood COLLECTED DATE/TIME:11/02/19 3:29 AM Blood Culture SPECIMEN DESCRIPTION : BLOOD LAC SPECIAL REQUESTS : NONE CULTURE : NO GROWTH 3 DAYS REPORT STATUS : PRELIMINARY REPORT TEST:Anaerobic Culture STATUS:Unauthenticated BODY SITE: SOURCE:TISSUE1 COLLECTED DATE/TIME:11/01/19 3:30 PM Anaerobic Culture SPECIMEN DESCRIPTION : TISSUE R KNEES SPECIAL REQUESTS : NONE CULTURE : NO ANAEROBES ISOLATED SO FAR. REPORT STATUS : PRELIMINARY REPORT TEST:Tissue/Biopsy Culture STATUS:Auth (Verified) BODY SITE: SOURCE:TISSUE1 COLLECTED DATE/TIME:11/01/19 3:30 PM Tissue/Biopsy Culture SPECIMEN DESCRIPTION : TISSUE R KNEE SPECIAL REQUESTS : NONE GRAM STAIN : 3+ POLYMORPHONUCLEAR LEUKOCYTES NO ORGANISMS SEEN CULTURE : 1+ STAPHYLOCOCCUS AUREUS, METHICILLIN RESISTANT. METHICILLIN RESISTANT STAPH AUREUS SHOULD BE CONSIDERED CLINICALLY RESISTANT TO ALL BETA-LACTAMS. Result reported to [facility]. CRITICAL VALUE CALLED AND VERIFIED BY READBACK FOR: S.AUREUS, KATHERINE [id number], SW7,TECH 357,11/03/19 @0800. REPORT STATUS : FINAL 11/04/2019 ORGANISM 1+ STAPHYLOCOCCUS AUREUS, METHICILLIN RESISTANT. METHICILLIN RESISTANT STAPH AUREUS SHOULD BE CONSIDERED CLINICALLY RESISTANT TO ALL BETA-LACTAMS. Result reported to [facility]. METHOD MIN. INHIB. CONC. (MCG/ML) CIPROFLOXACIN SUSCEPTIBLE CLINDAMYCIN SUSCEPTIBLE ERYTHROMYCIN RESISTANT INDUCIBLE CLINDAMYCI NEGATIVE LEVOFLOXACIN SUSCEPTIBLE LINEZOLID SUSCEPTIBLE OXACILLIN RESISTANT RIFAMPIN SUSCEPTIBLE RIFAMPIN RIFAMPIN SHOULD NOT BE USED ALONE FOR ANTIMICROBIAL RIFAMPIN THERAPY. TETRACYCLINE SUSCEPTIBLE TRIMETH/SULFAMETHOX SUSCEPTIBLE VANCOMYCIN SUSCEPTIBLE TEST:Tissue/Biopsy Culture STATUS:Auth (Verified) BODY SITE: SOURCE:TISSUE1 COLLECTED DATE/TIME:11/01/19 3:30 PM Tissue/Biopsy Culture SPECIMEN DESCRIPTION : TISSUE R KNEE SPECIAL REQUESTS : NONE GRAM STAIN : 3+ POLYMORPHONUCLEAR LEUKOCYTES 1+ GRAM POSITIVE COCCI CRITICAL VALUE CALLED AND VERIFIED BY READBACK FOR: GRAM STAIN TO [id number] BY TECH 3535 CULTURE : 1+ STAPHYLOCOCCUS AUREUS, METHICILLIN RESISTANT. METHICILLIN RESISTANT STAPH AUREUS SHOULD BE CONSIDERED CLINICALLY RESISTANT TO ALL BETA-LACTAMS. Result reported to [facility]. CRITICAL VALUE CALLED AND VERIFIED BY READBACK FOR: S.AUREUS, KATHERINE [id number],SW7,TECH 357,11/03/19 @0800. REPORT STATUS : FINAL 11/04/2019 ORGANISM 1+ STAPHYLOCOCCUS AUREUS, METHICILLIN RESISTANT. METHICILLIN RESISTANT STAPH AUREUS SHOULD BE CONSIDERED CLINICALLY RESISTANT TO ALL BETA-LACTAMS. Result reported to [facility]. METHOD MIN. INHIB. CONC. (MCG/ML) CIPROFLOXACIN SUSCEPTIBLE CLINDAMYCIN SUSCEPTIBLE ERYTHROMYCIN RESISTANT INDUCIBLE CLINDAMYCI NEGATIVE LEVOFLOXACIN SUSCEPTIBLE LINEZOLID SUSCEPTIBLE OXACILLIN RESISTANT RIFAMPIN SUSCEPTIBLE RIFAMPIN RIFAMPIN SHOULD NOT BE USED ALONE FOR ANTIMICROBIAL RIFAMPIN THERAPY. TETRACYCLINE SUSCEPTIBLE TRIMETH/SULFAMETHOX SUSCEPTIBLE VANCOMYCIN SUSCEPTIBLE TEST:Tissue/Biopsy Culture STATUS:Auth (Verified) BODY SITE: SOURCE:TISSUE1 COLLECTED DATE/TIME:11/01/19 3:30 PM Tissue/Biopsy Culture SPECIMEN DESCRIPTION : TISSUE R KNEES SPECIAL REQUESTS : NONE GRAM STAIN : 3+ POLYMORPHONUCLEAR LEUKOCYTES 1+ GRAM POSITIVE COCCI CRITICAL VALUE CALLED AND VERIFIED BY READBACK FOR: GRAM STAIN TO [id number] BY TECH 3535 CULTURE : 1+ STAPHYLOCOCCUS AUREUS, METHICILLIN RESISTANT. METHICILLIN RESISTANT STAPH AUREUS SHOULD BE CONSIDERED CLINICALLY RESISTANT TO ALL BETA-LACTAMS. Result reported to [facility]. CRITICAL VALUE CALLED AND VERIFIED BY READBACK FOR: S. AUREUS,KATHERINE [id number],7,TECH 357,11/03/19 @0800. REPORT STATUS : FINAL 11/04/2019 ORGANISM 1+ STAPHYLOCOCCUS AUREUS, METHICILLIN RESISTANT. METHICILLIN RESISTANT STAPH AUREUS SHOULD BE CONSIDERED CLINICALLY RESISTANT TO ALL BETA-LACTAMS. Result reported to [facility]. METHOD MIN. INHIB. CONC. (MCG/ML) CIPROFLOXACIN SUSCEPTIBLE CLINDAMYCIN INTERMEDIATE ERYTHROMYCIN RESISTANT INDUCIBLE CLINDAMYCI NEGATIVE LEVOFLOXACIN SUSCEPTIBLE LINEZOLID SUSCEPTIBLE OXACILLIN RESISTANT RIFAMPIN SUSCEPTIBLE RIFAMPIN RIFAMPIN SHOULD NOT BE USED ALONE FOR ANTIMICROBIAL RIFAMPIN THERAPY. TETRACYCLINE SUSCEPTIBLE TRIMETH/SULFAMETHOX SUSCEPTIBLE VANCOMYCIN SUSCEPTIBLE TEST:Anaerobic Culture STATUS:Unauthenticated BODY SITE: SOURCE:TISSUE1 COLLECTED DATE/TIME:11/01/19 3:30 PM Anaerobic Culture SPECIMEN DESCRIPTION : TISSUE R KNEE SPECIAL REQUESTS : NONE CULTURE : NO ANAEROBES ISOLATED SO FAR. REPORT STATUS : PRELIMINARY REPORT TEST:Anaerobic Culture STATUS:Unauthenticated BODY SITE: SOURCE:TISSUE1 COLLECTED DATE/TIME:11/01/19 3:30 PM Anaerobic Culture SPECIMEN DESCRIPTION : TISSUE R KNEE SPECIAL REQUESTS : NONE CULTURE : NO ANAEROBES ISOLATED SO FAR. REPORT STATUS : PRELIMINARY REPORT TEST:Anaerobic Culture STATUS:Unauthenticated BODY SITE: SOURCE:JOINT COLLECTED DATE/TIME:10/30/19 12:00 PM Anaerobic Culture SPECIMEN DESCRIPTION : JOINT FLUID R KNEE SPECIAL REQUESTS : NONE CULTURE : NO ANAEROBES ISOLATED SO FAR. REPORT STATUS : PRELIMINARY REPORT TEST:Sterile Fluid Culture STATUS:Auth (Verified) BODY SITE: SOURCE:JOINT COLLECTED DATE/TIME:10/30/19 12:00 PM Sterile Fluid Culture SPECIMEN DESCRIPTION : JOINT FLUID R KNEE SPECIAL REQUESTS : CRITICAL VALUE CALLED AND VERIFIED BY READBACK FOR: CULTURE REPORT TO [facility] [[email or web address]] [place] [id number], BY TECH 187 AT 1136, 10/31/19. GRAM STAIN : 4+ POLYMORPHONUCLEAR LEUKOCYTES 1+ GRAM POSITIVE COCCI CRITICAL VALUE CALLED AND VERIFIED BY READBACK FOR: GRAM POSITIVE COCCI IN GRAM STAIN TO [facility] ODALSI AVINA, BY TECH 187 AT 1536, 10/30/19. CULTURE : 3+ STAPHYLOCOCCUS AUREUS, METHICILLIN RESISTANT. METHICILLIN RESISTANT STAPH AUREUS SHOULD BE CONSIDERED CLINICALLY RESISTANT TO ALL BETA-LACTAMS. Result reported to [facility]. REPORT STATUS : FINAL 11/01/2019 ORGANISM 3+ STAPHYLOCOCCUS AUREUS, METHICILLIN RESISTANT. METHICILLIN RESISTANT STAPH AUREUS SHOULD BE CONSIDERED CLINICALLY RESISTANT TO ALL BETA-LACTAMS. Result reported to [facility]. METHOD MIN. INHIB. CONC. (MCG/ML) CIPROFLOXACIN SUSCEPTIBLE CLINDAMYCIN SUSCEPTIBLE ERYTHROMYCIN RESISTANT INDUCIBLE CLINDAMYCI NEGATIVE LEVOFLOXACIN SUSCEPTIBLE LINEZOLID SUSCEPTIBLE OXACILLIN RESISTANT RIFAMPIN SUSCEPTIBLE RIFAMPIN RIFAMPIN SHOULD NOT BE USED ALONE FOR ANTIMICROBIAL RIFAMPIN THERAPY. TETRACYCLINE SUSCEPTIBLE TRIMETH/SULFAMETHOX SUSCEPTIBLE VANCOMYCIN SUSCEPTIBLE Radiology Reports * Exam Date Time Procedure Performing Provider Status 11/01/19 6:42 PM Knee 1 or 2 Views Right Randall Mckoy ; Auth (Verified) Notes: (Knee 1 or 2 Views Right) Reason For Exam: Postop RESULT: Knee 1 or 2 Views Right Knee 1 or 2 Views Right, 2 views Reason: Postop; Clinical Question(s): Other:; Implant Position. COMPARISON: Multiple prior right knee radiographs, the most recent of which is dated 10/30/2019. FINDINGS: There has been interval removal of the tibial tray from the previously seen right knee arthroplastywith antibiotic spacer noted. Metallic bj/screw is seen in the tibial medullary cavity, with surrounding density which may reflect cement or intrahepatic material. The femoral component also appearsto have been revised with new density in the medullary cavity of the distal femur, surrounding curvilinear increased density structures. Subcutaneous gas and surgical skin marnie are compatible withthe perioperative state. No acute displaced fracture is seen. IMPRESSION: Revision of the right total knee arthroplasty with placement of antibiotic spacer as above. WSN: [id number] Dictated By: Bronwyn Rdz MD Dictated Date/Time: 11/01/19 7:30 pm Reviewed By: Bronwyn Rdz MD Signed By: Bronwyn Rdz MD Signed Date/Time: 11/01/19 7:30 pm Transcribed By: FEDERICO Transcribed Date/Time: 11/01/19 7:25 pm * Exam Date Time Procedure Performing Provider Status 10/30/19 11:44 AM Knee 1 or 2 Views Right Veronica Salvador; Auth (Verified) Notes: (Knee 1 or 2 Views Right) Reason For Exam: Pain RESULT: Knee 1 or 2 Views Right Knee 1 or 2 Views Right, views Reason: Pain; Clinical Question(s): Fracture; Hx of Present Illness: Pt reports that he has right knee swelling x 2 days- +chronic pain since right TKR 2016 and infection in knee in 2018- Pt feelsfeverish ; Other Objective Findings: alert, color pink, skin w d, resps' regular, sitting in wheelchair, obvious swelling to right knee- unable to visualize in triage d t clothing COMPARISON: 02/28/2019, and dating back to 08/06/2017. FINDINGS: There has been total right knee arthroplasty with patellar resurfacing. The femoral and tibial components appear grossly well seated without periprosthetic fracture or definitive lucencies. No malalignment. Extensive soft tissue swelling about the knee with a large joint effusion present. IMPRESSION: Extensive soft tissue swelling about the knee with large joint effusion. No discrete bony abnormality or periprosthetic abnormality. Recommend aspiration to assess for particle disease or infection. WSN: [id number] Dictated By: Matti Draper MD Dictated Date/Time: 10/30/19 1:22 pm Reviewed By: Matti Draper MD Signed By: Matti Draper MD Signed Date/Time: 10/30/19 1:22 pm Transcribed By: FEDERICO Transcribed Date/Time: 10/30/19 1:19 pm Vital Signs Most recent to oldest [Reference Range]: 1 2 3 Height 178 cm (11/05/19 3:24 PM) 178 cm (11/05/19 7:06 AM) 178 cm (11/05/19 4:01 AM) Weight 87 kg (11/01/19 1:07 PM) 87 kg (10/30/19 4:40 PM) Oxygen Saturation [94-100 %] 98 % (11/05/19 3:24 PM) 98 % (11/05/19 7:06 AM) 97 % (11/05/19 4:01 AM) Pulse Rate [55-90 bpm] 59 bpm (11/05/19 3:24 PM) 66 bpm (11/05/19 8:16 AM) 66 bpm (11/05/19 7:06 AM) Body Mass Index [18.5-24.99] 27.46 *H* (11/01/19 1:07 PM) 27.46 *H* (10/30/19 4:40 PM) Blood Pressure [90-138/55-84 mm Hg] 106/56mm Hg (11/05/19 3:24 PM) 141/71mm Hg *H* (11/05/19 8:16 AM) 141/71mm Hg *H* (11/05/19 7:06 AM) Respiratory Rate [16-30 br/min] 18 br/min (11/05/19 3:24 PM) 20 br/min (11/05/19 12:10 PM) 18 br/min (11/05/19 7:06 AM) Temperature [96.8-100.4 DegF] 98.2 DegF (11/05/19 3:24 PM) 98.2 DegF (11/05/19 7:06 AM) 98.4 DegF (11/05/19 4:01 AM) Liters per Minute 6 L/min (11/01/19 6:30 PM) Mode of Delivery (Oxygen) Room air (11/05/19 3:24 PM) Room air (11/05/19 7:06 AM) Room air (11/05/19 4:01 AM) Blood pressure sites Arm, left (11/05/19 3:24 PM) Arm, right (11/05/19 7:06 AM) Arm, right (11/05/19 4:01 AM) Temperature Route Oral (11/05/19 3:24 PM) Oral (11/05/19 7:06 AM) Oral (11/05/19 4:01 AM) Dry Weight 87 kg (10/30/19 4:40 PM) Sensory deficits None (10/30/19 4:40 PM) Mobility assistance Independent (10/30/19 4:40 PM) Social History Social History Type Response Smoking Status Never (less than 100 in lifetime) entered on: 03/26/19 Sex
--- OUTSIDE RECORDS SUMMARY | 2023-02-21 12:33 | XMS_ITS | Continuity of Care Document ---
Author Name Unknown Organization [facility] ter Address [address] [place] [id number]- Care Team Providers Care Retail Warehouse Associate Name Role Phone Koko Cage MD Primary Care Physician [place] [facility] [place] - 12/06/[address] [address]- [facility] Attending Physician: Not on Staff, Attending [...] 03/29/20 13:53:00 EDT, 11/30/19 13:53:00 EST, [facility]apsule, [id number], 178, cm, 11/30/19 13:41:00 EST, Height, 87, [...]
[2023-02-21 12:40] LABS: Alanine Aminotransferase 39 U/L (0-40); Albumin Level 4.5 g/dL (3.5-5.0); Alkaline Phosphatase 94 U/L (39-117); Anion Gap 13 (12-20); Aspartate Amino Transferase 45 U/L (5-37); Bilirubin Total 1.5 mg/dL (0.0-1.0); Blood Urea Nitrogen 20 mg/dL (9-16); Calcium 9.6 mg/dL (8.4-10.2); Carbon Dioxide 23 mmol/L (22-29); Chloride 110 mmol/L (96-108); Creatinine Clr Calc Pharmacy 94.4; Estimated Glomerular Filt Rate > 60; Glucose Random 98 mg/dL (60-115); Magnesium 1.7 mg/dL (1.6-2.6); Potassium 4.7 mmol/L (3.3-5.1); Sodium 141 mmol/L (135-145)
[2023-02-21 12:46] LABS: B Type Natriuretic Peptide 76 pg/mL (<100)
[2023-02-21 13:12] LABS: Influenza A PCR NEGATIVE (Negative); Influenza B PCR NEGATIVE (Negative); Resp Syncy Virus RNA Qual PCR NEGATIVE (Negative); SARS COV2 PCR INHOUSE NEGATIVE (Negative)
== END 2023-02-21 13:17 | disposition home or self-care (01) ==
PROVIDERS: Physician Assistant Medical; Emergency Provider Emergency Medicine; PCP Internal Medicine
DX: J40 Bronchitis, not specified as acute or chronic (principal); R05.9 Cough, unspecified; R04.2 Hemoptysis; R06.02 Shortness of breath; Z20.822 Contact with and (suspected) exposure to COVID-19; Z20.828 Contact with and (suspected) exposure to other viral communicable diseases; Z79.899 Other long term (current) drug therapy
CPT/HCPCS: 0241U; 71046; 80053; 83735; 83880; 85025; 99282; 99283

== ENCOUNTER 2023-03-10 12:38 | Outpatient (REF) | payer MEDICARE, SELFPAY ==
[2023-03-10 14:51] LABS: Prostate Specific Antigen 1.94 ng/mL (<0.05-4.0)
== END 2023-03-10 12:39 | disposition home or self-care (01) ==
LOC: HO.LAB 12:38
PROVIDERS: PCP Internal Medicine; Visit Provider Urology
DX: N40.1 Benign prostatic hyperplasia with lower urinary tract symptoms (principal); N13.8 Other obstructive and reflux uropathy; Z12.5 Encounter for screening for malignant neoplasm of prostate
CPT/HCPCS: 36415; 84153

== ENCOUNTER → 2023-03-18 15:24 | Outpatient (BNVA) | payer MEDICARE, SELFPAY | PROVIDERS: PCP Internal Medicine; Visit Provider Urology | DX: N40.1 Benign prostatic hyperplasia with lower urinary tract symptoms (principal); N13.8 Other obstructive and reflux uropathy; R97.20 Elevated prostate specific antigen [PSA]; N52.01 Erectile dysfunction due to arterial insufficiency | CPT/HCPCS: 51798; 99212 ==

== ENCOUNTER 2023-08-18 07:05 | Outpatient (REF) | payer MEDICARE, SELFPAY ==
[2023-08-18 08:45] LABS: Alanine Aminotransferase 29 U/L (0-40); Albumin Level 4.4 g/dL (3.5-5.0); Alkaline Phosphatase 84 U/L (39-117); Anion Gap 14 (12-20); Aspartate Amino Transferase 33 U/L (5-37); Bilirubin Total 0.7 mg/dL (0.0-1.0); Blood Urea Nitrogen 18 mg/dL (9-16); Calcium 9.9 mg/dL (8.4-10.2); Carbon Dioxide 24 mmol/L (22-29); Chloride 107 mmol/L (96-108); Estimated Glomerular Filt Rate > 60; Glucose Random 118 mg/dL (60-115); Potassium 4.3 mmol/L (3.3-5.1); Sodium 141 mmol/L (135-145); Total Protein 7.2 g/dL (6.5-8.0)
== END 2023-08-18 07:06 | disposition home or self-care (01) ==
LOC: HO.LAB 07:05
PROVIDERS: PCP Internal Medicine; Visit Provider Internal Medicine
DX: I10 Essential (primary) hypertension (principal); R60.9 Edema, unspecified
CPT/HCPCS: 36415; 80053

== ENCOUNTER 2024-03-09 14:37 | Outpatient (REF) | payer MEDICARE, SELFPAY ==
[2024-03-09 16:26] LABS: PSA,Total (Free>4and<10) 1.88 ng/mL (0.00-4.00)
== END 2024-03-09 14:38 | disposition home or self-care (01) ==
LOC: HO.LAB 14:37
PROVIDERS: Urology; PCP Internal Medicine; Visit Provider Internal Medicine Nephrology
DX: Z12.5 Encounter for screening for malignant neoplasm of prostate (principal); N52.01 Erectile dysfunction due to arterial insufficiency; R97.20 Elevated prostate specific antigen [PSA]; N13.8 Other obstructive and reflux uropathy; N40.1 Benign prostatic hyperplasia with lower urinary tract symptoms
CPT/HCPCS: 36415; 84153

== ENCOUNTER 2024-03-17 15:52 | Outpatient (AMB) | payer MEDICARE, SELFPAY ==
--- NOTE | 2024-03-17 15:53 | MHC.OFFVIS ---
Intake Visit Reasons: 1 follow up Intake Note: Patient is Present for Telephone Follow Up For Urology Med: Finasteride, Sildenafil Antibiotic Allergy:None Blood Thinner:none Allergies No Known Allergies Allergy (Verified 03/18/23 15:41) Medication List - Last Reconciled 03/17/24 by Smith Schmitz MD amlodipine 10 mg PO DAILY atenolol 150 mg PO DAILY atorvastatin 40 mg PO DAILY azithromycin For 250 mg dose pack: take 500 mg today (day 1), then 250 mg for 4 days (days 2-5) buspirone 15 mg PO BID citalopram 60 mg PO Q OTHER DAY PRN duloxetine 60 mg PO DAILY finasteride 5 mg PO DAILY 90 days losartan 100 mg PO DAILY sertraline 50 mg PO DAILY sertraline 100 mg PO DAILY sildenafil 100 mg PO DAILY 30 days HPI Comments Details: Erickson is a very pleasant male. He is a patient of Dr. Cage. He is seen for the following urologic conditions. - elevated PSA - lower urinary tract symptoms - erectile dysfunction Telemedicine Evaluation 15 min Consultation DoxNEMOPTIC Joana Video Continue good response to sildenafil for erections Will continue finasteride PSA fallen One year review Elevated PSA/Abnormal WILMER: Prior to medication nocturia x2 with weak stream He presents for further evaluation of elevated PSA. Current management is finasteride. Laboratory investigations include a total PSA evaluation 07/06 5.0 - 12/07 2.4, 05/07 2.8, 11/18 2.2, 12/08 2.2, 03/10 1.9 Individualized Prostate Cancer Risk Calculator 5-10% high risk. Symptoms include incomplete emptying, weak stream, nocturia, and are worsening. Overall symptoms are moderate. Therapeutic plan will be continued surveillance - finasteride Review of Systems Const All systems reviewed & are unremarkable except as noted in HPI and below Reports no additional complaints Resp Reports no additional complaints GI Reports no additional complaints Reports as per HPI Musc Reports no additional complaints Physical Exam Telemedicine evaluation Appropriate responses Regular breathing rate and rhythm HEENT Head: Yes normal to inspection Ears: hearing grossly normal bilaterally Eyes General: appearance normal, both eyes and all related structures Neck Neck: Yes normal visual inspection Chest Chest palpation & inspection: normal inspection of the chest Resp Effort & Inspection: normal respiratory effort and able to speak in complete sentences Telehealth Telehealth Telehealth Platform: saambaa Location of provider rendering services: practice address Location of patient: address on file Patient Identification confirmed using: Name, : Yes Telehealth method: video Patient verbally consented to treatment: Yes Patient verbally consented to billing insurance company: Yes Patient informed of any privacy concerns related to visit: Yes Minutes spent on Phone/Video with Pt.: 15 Assessment & Plan Assessment & Plan (1) Elevated PSA: Code(s): R97.20 - Elevated prostate specific antigen [PSA] Category: Medical (2) BPH w urinary obs/LUTS: Code(s): N40.1 - Benign prostatic hyperplasia with lower urinary tract symptoms; N13.8 - Other obstructive and reflux uropathy Category: Medical (3) Erectile dysfunction due to arterial insufficiency: Code(s): N52.01 - Erectile dysfunction due to arterial insufficiency Category: Medical Plan Twelve month follow-up PSA Orders: Orders Prostate Specific Antigen 364 Days R97.20 - Elevated prostate specific antigen [PSA] Medications: Refilled finasteride 5 mg PO DAILY 90 days 90 tabs 1RF R97.20 - Elevated prostate specific antigen [PSA] Patient Instructions: Imaging studies, laboratory and physical exam results were discussed and reviewed in detail. No major barriers to patient understanding were identified. An opportunity to ask questions regarding the treatment plan was provided. All questions were answered. The patient expressed understanding and agreement with the above treatment plan. The patient is aware they should contact our office by phone for worsening of their current condition or the appearance of new urologic symptoms. Compliance is encouraged with any medications and followup testing that is ordered. It is a privilege to participate in the urologic care of your patient. If you have any questions or concerns regarding treatment for the above conditions, or other urologic issues, please do not hesitate to contact me. The office telephone contact is [phone]. This note is constructed using voice recognition software. While every effort has been made to ensure accuracy wealth management director errors may have been included. Yours sincerely, Dr Smith Schmitz MD, [facility] - Urology Providers of Expert, Compassionate Care for the Genitourinary System Coding Level of Care Code Tele Est Pt Level 4 (11386) Complex EM visit Add On G2211 Diagnoses Elevated PSA R97.20 BPH w urinary obs/LUTS N40.1; N13.8 Erectile dysfunction due to arterial insufficiency N52.01
--- OUTSIDE RECORDS SUMMARY | 2024-03-17 15:54 | XMS_ITS | Patient Health Record ---
Author Organization [facility] Address [address] [place] [id number] Care Team Providers Care Net Developer Software Engineer C Name Role Phone Koko Cage MD Primary Care Provider Unavailab Ty Rasheed Jr Unavailable [phone] REASON FOR REFERRAL No Information MEDICATIONS Medication SIG (Take, Route, Frequency, Duration) Notes Start Date End Date Status Lisinopril 10mg Acti ve Suprep Bowel Prep 1 as directed Orally 1 for 1 dose 08/13/2013 11/17/2023 Active Aspirin EC Lo-Dose A ctive Citalopram & Diet Manage Prod 20mg Active Atenolol 100mg Activ e SOCIAL HISTORY Sex Assigned At : Social History Observation Description Sex Assigned At Unknown PROBLEMS Problem Type ICD Code Onset Dates Problem Status W/U Status Risk SNOMED Code Notes Problem Change in bowel habits (787.99) Active confirmed Change in bowel habit (88493062) Problem Aspirin long-term use (V58.66) Active confirmed Long-term current use of aspirin (6166211683757 03) Problem Colon cancer screening (V76.51) Active confirmed Colon cancer screening (336109918) PLAN OF TREATMENT Future Test Test Name Order Date COLONOSCOPY 08/13/2013 Next Appt Details Provider Name:Ty flynn Jr, 04/07/2024 10:20:00 AM, [address], [address], [place], [address], Insurance Providers Payer Name Payer Address Payer Phone Subscriber Number Group Number Insured Name Patient Relationship to Insured Coverage Start Date Coverage End Date MEDICARE OF [place] [address] [place] [address] [phone] [id number] VANESSA MARTIN Self - patient is the insured [facility] SUPPLEMENT [place] PLAN [address] [place] [address] [id number] MARIO VANESSA Self - patient is the insured MEDICAL (GENERAL) HISTORY Medical History History ICD Code hypertension Denies [place],DM,CVA,Lung disease,renal dise ase Surgical History Surgery Date(Month/Year) tonsillectomy hydrocele repair growth on chest removed
== END 2024-03-17 16:25 | disposition home or self-care (01) ==
LOC: HO.HUSH 15:52
PROVIDERS: PCP Internal Medicine; Visit Provider Urology
DX: R97.20 Elevated prostate specific antigen [PSA] (principal); N40.1 Benign prostatic hyperplasia with lower urinary tract symptoms; N13.8 Other obstructive and reflux uropathy; N52.01 Erectile dysfunction due to arterial insufficiency
CPT/HCPCS: 99213; G2211

== ENCOUNTER → 2024-03-17 15:52 | Outpatient (BNVA) | payer MEDICARE, SELFPAY | PROVIDERS: PCP Internal Medicine; Visit Provider Urology ==

== ENCOUNTER 2024-04-27 10:10 | Day surgery (SDC) | payer MEDICARE, SELFPAY ==
[2024-04-23 10:17] VITALS: BMI 29.1
--- NOTE | 2024-04-26 09:43 | HO.ANESPROP2 ---
Documented by User: Annel Blanchard NP 04/26/24 09:45 HPI - Anesthesia Eval Consult details Narrative: 73yo M for Colonoscopy PMFSH Active Problems Active Problems: All Active Problems Hypertension (Acute) Erectile dysfunction due to arterial insufficiency (Acute) Elevated PSA (Acute) Weak urinary stream (Acute) BPH w urinary obs/LUTS (Acute) Past Medical History Medical History BPH (benign prostatic hyperplasia) Erectile dysfunction Anxiety Arthritis Elevated cholesterol HTN (hypertension) Surgical History Surgical History Hx of excision of mass History of hydrocelectomy Hx of tonsillectomy H/O colonoscopy Social History Social History (Updated 04/23/24 @ 10:17 by Sadie Mccray RN) Household Members: Spouse Patient Tobacco Use Status: Former Tobacco user Tobacco use type: Cigarette Are you DNR?: No Advance Directives: No Advance Directives Information Provided: Yes Nutrition Risks: No Nutritional Risk Meds Allergies Allergy/AdvReac Type Severity Reaction Status Date / Time No Known Allergies Allergy Verified 04/27/24 10:36 Home Medications ?Medication ?Instructions ?Recorded ?Confirmed ?Last Taken ?Type atenolol 50 mg tablet 100 mg PO DAILY 11/23/20 04/23/24 04/27/24 History atorvastatin 40 mg tablet 40 mg PO DAILY 11/23/20 04/23/24 Unknown History amlodipine 10 mg tablet 10 mg PO DAILY 03/18/23 04/23/24 04/27/24 History buspirone 15 mg tablet 30 mg PO BID 03/18/23 04/23/24 Unknown History sertraline 100 mg tablet 100 mg PO DAILY 03/18/23 04/23/24 Unknown History valsartan 320 mg tablet 320 mg PO DAILY 04/23/24 04/23/24 Unknown History Exam Height,Weight and Vital Signs: Height 5 ft 10 in Weight 92.079 kg Assessment and Plan Assessment Anesthesia Assessment: Chart Reviewed Documented by User: Sonam Whitley MD 04/27/24 11:30 PMF Past Medical History Medical History BPH (benign prostatic hyperplasia) Erectile dysfunction Anxiety Arthritis Elevated cholesterol HTN (hypertension) Family History Family history of problems with anesthesia: No Surgical History Surgical History Hx of excision of mass History of hydrocelectomy Hx of tonsillectomy H/O colonoscopy History of Problems with Anesthesia: No Social History Social History (Updated 04/23/24 @ 10:17 by Sadie Mccray RN) Household Members: Spouse Patient Tobacco Use Status: Former Tobacco user Tobacco use type: Cigarette Are you DNR?: No Advance Directives: No Advance Directives Information Provided: Yes Nutrition Risks: No Nutritional Risk Meds Allergies Allergy/AdvReac Type Severity Reaction Status Date / Time No Known Allergies Allergy Verified 04/27/24 10:36 Home Medications ?Medication ?Instructions ?Recorded ?Confirmed ?Last Taken ?Type atenolol 50 mg tablet 100 mg PO DAILY 11/23/20 04/23/24 04/27/24 History atorvastatin 40 mg tablet 40 mg PO DAILY 11/23/20 04/23/24 Unknown History amlodipine 10 mg tablet 10 mg PO DAILY 03/18/23 04/23/24 04/27/24 History buspirone 15 mg tablet 30 mg PO BID 03/18/23 04/23/24 Unknown History sertraline 100 mg tablet 100 mg PO DAILY 03/18/23 04/23/24 Unknown History valsartan 320 mg tablet 320 mg PO DAILY 04/23/24 04/23/24 Unknown History Exam Airway Mallampati Class: II TM Dist: >3cm Neck ROM: Full Assessment and Plan Assessment Anesthesia Assessment: Anesthesia Plan Discussed Final Anesthetic Review Family History of Problems with Anesthesia: No History of Problems with Anesthesia: No NPO: Yes ASA Class: II Final Preanesthetic Review: No Changes in Pt Med Stat, Meds/Allgs Chart Reviewed, Consent Obtained/Reviewed and Anes Risks/Benef Reviewed Patient Risk: Low Procedure Risk: Low Anesthetic Plan Anesthetic Plan: TIVA Disposition: Standard PACU
--- OUTSIDE RECORDS SUMMARY | 2024-04-27 10:14 | XMS_ITS | Patient Health Record ---
Author Organization [facility] Address [address] [place] [address] Care Team Providers Care Fire Alarm Mechanic Name Role Phone Koko Cage MD Primary Care Provider UnavailTy Schultz Jr ALLERGIES No Known Allergies REASON FOR REFERRAL No Information MEDICATIONS Medication SIG (Take, Route, Frequency, Duration) Notes Start Date End Date Status Atenolol 100mg Activ e Finasteride 5 MG 1 tablet Orally Once a day for 30 day(s) Active Valsartan 320 MG 1 tablet Orally Once a day for 30 day(s) Active Atorvastatin Calcium 40 MG 1 tablet Oral ly Once a day for 30 day(s) Active Sertraline HCl 100 MG 1 tablet Orally On ce a day for 30 day(s) Active busPIRone HCl 30 MG 1 tablet Orally Twic e a day Active IMMUNIZATIONS Vaccine Route Administration Date Status Comme nts Influenza Unknown 10/07/2023 Administered SOCIAL HISTORY Sex Assigned At : Social History Observation Description Sex Assigned At Unknown VITAL SIGNS Temperature 98.0 degrees Fahrenheit 04/07/2024 Blood pressure diastolic 00 mm Hg 04/07/2024 Height 70 in 04/07/2024 Blood pressure systolic 000 mm Hg 04/07/2024 Weight 203 lb 4 oz lbs 04/07/2024 BMI 29.16 kg/m2 04/07/2024 Encounters Encounter Location Date Provider Diagnosis [facility] [address] [place], [place] [id number] 04/27/2024 Ty Temple Jr [facility] [address] [place] [address] 04/07/2024 Ty Temple Jr Colon cancer screening Z12.11 ASSESSMENTS Encounter Date Diagnosis Assessment Notes Treatment Notes Treatment Clinical Notes 04/07/2024 Colon cancer screening (ICD-10 - Z12.11) Colon cancer screening material was printed PLAN OF TREATMENT Future Test Test Name Order Date COLONOSCOPY 08/13/2013 COLONOSCOPY 04/07/2024 Next Appt Details Provider Name:Ty flynn Jr, 04/27/2024 12:20:00 PM, [address] [place] [address], [phone], Insurance Providers Payer Name Payer Address Payer Phone Subscriber Number Group Number Insured Name Patient Relationship to Insured Coverage Start Date Coverage End Date MEDICARE OF [place] [address] [place] [id number] VANESSA MARTIN Self - patient is the insured [employer] SUPPLEMENT [place] PLAN [address] [place] [id number] VANESSA MARTIN Self - patient is the insured MEDICAL (GENERAL) HISTORY Medical History History ICD Code Hypertension Hyperlipidemia Anxiety Arthritis Allergies Colonoscopy 2013 normal, ten-year follow up Elevated PSA Surgical History Surgery Date(Month/Year) tonsillectomy hydrocele repair growth on chest removed
[2024-04-27] MEDS: Lactated Ringers 1,000 ML 100 ML IVCONT (10:49)
[2024-04-27 10:55] VITALS: BP 138/82; PULSE 54; RESP 18; TEMP 36.8; O2SAT 97
[2024-04-27 10:56] VITALS: BMI 28.5
--- NOTE | 2024-04-27 11:16 | MHC.SHP ---
Pre-Procedural Eval Section A - 24 Hr Update-Section A only Date of Service: 04/27/24 The patient is an INPATIENT: No Changes since office visit: No Cold of Flu in the past 2 weeks, No New Medical Problems, No Changes in Medication and No Patient answered all questions The patient has been examined within 24 hours of the surgical procedure. The History & Physical has been completed within 30 days and I have reviewed it.: Yes Section B - Complete if H&P > 30 days Chief Complaint: screening Allergies: Allergies Allergy/AdvReac Type Severity Reaction Status Date / Time No Known Allergies Allergy Verified 04/27/24 10:36 Plan I have reviewed the history and physical and performed a pertinent physical examination on my patient. No changes have occurred unless specified. Time Spent With Patient Time: Total time managing care of this patient today ____ minutes.
[2024-04-27 12:23] VITALS: BP 99/57; PULSE 48; RESP 12; TEMP 36.4; O2SAT 96
[2024-04-27 12:38] VITALS: BP 134/79; PULSE 48; RESP 16; O2SAT 96
[2024-04-27 12:50] VITALS: BP 145/79; PULSE 50; RESP 16; TEMP 36.4; O2SAT 96
--- NOTE | 2024-04-27 19:01 | PC.NURSE ---
[employer] sign on issues from [id number]. Physician Post-op note documented using paper Progress Note
--- NOTE | 2024-04-28 10:25 | OP_ITS ---
DATE OF SERVICE: 04/27/2024 SURGEON: Ty Temple MD INDICATIONS: Colon cancer screening. PREOPERATIVE DIAGNOSIS: POSTOPERATIVE DIAGNOSIS: PROCEDURE PERFORMED: Colonoscopy to the terminal ilium. ESTIMATED BLOOD LOSS: COMPLICATIONS: ANESTHESIA: Monitored anesthesia care. ASSISTANTS: SPECIMENS: DESCRIPTION OF PROCEDURE: A history and physical was performed. The risks and benefits of the procedure were explained to the patient. Informed consent was obtained. The patient was placed in the left lateral decubitus position. A digital rectal exam was performed and was found to be normal. The Olympus pediatric video colonoscope was introduced into the rectum and advanced to the cecum. The cecum was identified by transillumination, palpation, and identification of the ileocecal valve. Examination was performed. The scope was removed. He tolerated the procedure well and was returned to the recovery area in stable condition. FINDINGS: The terminal ileum was briefly examined and appeared normal. The visualized colonic mucosa was normal. The quality of the prep was good. No polyps were identified. Retroflexed examination showed some small internal hemorrhoids. IMPRESSION: Normal colonoscopy. RECOMMENDATION: 1. Follow up as needed. 2. Repeat colonoscopy is recommended in 10 years for average-risk individuals. This is optional based on the patient's age. MD JUAN Vital/MODL / [id number]
== END 2024-04-27 13:10 | disposition home or self-care (01) ==
PROVIDERS: PCP Internal Medicine; Visit Provider Internal Medicine Gastroenterology
PROC: 0DJD8ZZ Inspection of Lower Intestinal Tract, Via Natural or Artificial Opening Endoscopic (ICD-10-PCS; CPT 45378; principal; 2024-04-27 12:50)
DX: Z12.11 Encounter for screening for malignant neoplasm of colon (principal); K64.8 Other hemorrhoids; I10 Essential (primary) hypertension; Z79.899 Other long term (current) drug therapy
CPT/HCPCS: G0121; J2704

== ENCOUNTER 2024-05-13 07:54 | Outpatient (REF) | payer MEDICARE, SELFPAY ==
[2024-05-13 08:18] LABS: MANUAL DIFF FLAG NO
[2024-05-13 08:57] LABS: Basophils Absolute Auto 0.1 X10*3/uL (0.0-0.2); Basophils Percent Auto 1.4 % (0-2); Eosinophils Absolute Auto 0.1 X10*3/uL (0.0-0.4); Eosinophils Percent Auto 2.9 % (0-4); Hematocrit 41.6 % (42.0-52.0); Hemoglobin 14.4 g/dl (14.0-18.0); Imm Gran Abs Auto 0.02 X10*3/uL (0.00-0.03); Imm Gran Pct Auto 0.4 % (0.0-0.4); Lymphocytes Absolute Auto 1.5 X10*3/uL (1.2-4.9); Lymphocytes Percent Auto 29.9 % (20-40); Mean Corpuscular HGB Conc 34.6 g/dl (31.0-36.0); Mean Corpuscular Hemoglobin 32.1 pg (27.0-33.0); Mean Corpuscular Volume 92.9 fL (80.0-98.0); Mean Platelet Volume 9.2 fL (9.4-12.4); Monocytes Absolute Auto 0.5 X10*3/uL (0.1-1.2); Neutrophils Absolute Auto 2.7 x10*3/uL (2.0-8.3); Neutrophils Percent Auto 55.4 % (45-73); Platelet Count 252 X10*3/uL (160-400); Red Blood Count 4.48 X10*6/uL (4.60-5.80); Red Cell Distribution Width 12.9 % (11.0-16.0); White Blood Count 4.9 X10*3/uL (4.8-10.8)
[2024-05-13 09:25] LABS: Blood Urea Nitrogen 29 mg/dL (9-16); Calcium 9.5 mg/dL (8.4-10.2)
[2024-05-13 09:29] LABS: Alanine Aminotransferase 36 U/L (0-40); Albumin Level 4.5 g/dL (3.5-5.0); Alkaline Phosphatase 74 U/L (39-117); Anion Gap 14 (12-20); Aspartate Amino Transferase 38 U/L (5-37); Bilirubin Total 1.4 mg/dL (0.0-1.0); Blood Urea Nitrogen 29 mg/dL (9-16); Calcium 9.6 mg/dL (8.4-10.2); Carbon Dioxide 21 mmol/L (22-29); Chloride 109 mmol/L (96-108); Estimated Glomerular Filt Rate > 60; Glucose Random 107 mg/dL (60-115); HDL Cholesterol 88 mg/dL (>40); Sodium 140 mmol/L (135-145); Total Protein 7.5 g/dL (6.5-8.0)
[2024-05-13 09:31] LABS: Creatinine Urine 256.45 mg/dL; Microalbum/Creatinine Ratio Ur 12.8 ug/mg cr (<30); Total Protein Urine Random 25 mg/dL (<12)
== END 2024-05-13 07:55 | disposition home or self-care (01) ==
LOC: HO.LAB 07:54
PROVIDERS: Absent Provider Internal Medicine; PCP Internal Medicine; Visit Provider Internal Medicine Nephrology
DX: I10 Essential (primary) hypertension (principal); E78.5 Hyperlipidemia, unspecified
CPT/HCPCS: 36415; 80053; 82043; 82310; 82570; 83718; 84156; 84520; 85025

== ENCOUNTER 2024-06-09 15:33 | Outpatient (AMB) | payer MEDICARE, SELFPAY ==
--- NOTE | 2024-06-09 15:35 | HO.NEPHOV_ITS ---
Vital Signs 06/09/24 15:40 Height 5 ft 10 in Weight 201 lb 2 oz BMI 28.9 BP 122/70 Blood Pressure Location Rt brachial Position Sitting Pulse 66 Pulse Source Pulse Oximeter Pulse Oximetry (%) 95 Oxygen Delivery Method Room Air Intake Visit Reasons: Continuing care from Rtane/ LVM Supervisor Computer Operations Required: No Accompanied by: Self / Same As Patient Allergies No Known Allergies Allergy (Verified 06/09/24 15:42) HPI Comments Details: Erickson was seen in the office in follow-up of his hypertension. He has history of DESTIN which has been resolved. He has high PSA which has been treated in follow-up by Dr. Schmitz. He is quite active. His blood pressure is currently well controlled on atenolol 150 mg daily along with valsartan 320 mg daily. He denies any chest pain, shortness of breath, proximal nocturnal dyspnea, orthopnea, pedal edema, dizziness, hematuria or orthostatic symptoms. He maintains good hydration and avoids nonsteroidal anti-inflammatories. There were no active issues at the time of this office visit. He is closely monitored by his primary care physician. [facility] Medical History (Updated 06/10/24 @ 09:30 by Ozzie Muñoz MD) BPH (benign prostatic hyperplasia) Erectile dysfunction Anxiety Arthritis Elevated cholesterol HTN (hypertension) Surgical History Hx of excision of mass History of hydrocelectomy Hx of tonsillectomy H/O colonoscopy Social History Household Members: Spouse Patient Tobacco Use Status: Former Tobacco user Tobacco use type: Cigarette Review of Systems Const All systems reviewed & are unremarkable except as noted in HPI and below Physical Exam Vital Signs: Last Vital Signs Pulse 66 06/09/24 15:40 BP 122/70 06/09/24 15:40 Pulse Ox 95 06/09/24 15:40 Oxygen Delivery Method Room Air 06/09/24 15:40 BMI result Body Mass Index 28.9 Const General: comfortable and no acute distress Orientation/consciousness: patient oriented x3 HEENT Head: Yes normocephalic Mouth: Normal oral and palatal mucosa present Eyes EOM: EOMs intact bilaterally Neck Neck: Yes supple Resp Auscultation: clear to auscultation bilaterally Cardio Jugular venous distension: no JVD Rate: regular rate GI Palpation (GI): Soft to palpation Auscultation: normal bowel sounds General: Yes no CVA tenderness Back/Spine/Pelvis Back: no CVA tenderness Skin General skin exam: no rashes or lesions noted Neuro General: patient oriented x3 and moves all extremities Extrem General: Yes no pedal edema Results Reviewed Nephrology Results: Hgb 14.4 g/dl (14.0-18.0) 05/13/24 WBC 4.9 X10*3/uL (4.8-10.8) 05/13/24 Plt Count 252 X10*3/uL (160-400) 05/13/24 Sodium 140 mmol/L (135-145) 05/13/24 Potassium 4.0 mmol/L (3.3-5.1) 05/13/24 Chloride 109 mmol/L (96-108) H 05/13/24 Carbon Dioxide 21 mmol/L (22-29) L 05/13/24 BUN 29 mg/dL (9-16) H 05/13/24 Creatinine 0.87 mg/dL (0.5-1.4) 05/13/24 Calcium 9.6 mg/dL (8.4-10.2) 05/13/24 Urine Creatinine 256.45 mg/dL 05/13/24 Protein/Creatinin Ratio 0.10 (<0.2) 05/13/24 Assessment & Plan Assessment & Plan (1) Hypertension: Code(s): I10 - Essential (primary) hypertension Category: Medical Qualifiers: Hypertension type: primary hypertension Qualified Code(s): I10 - Essential (primary) hypertension Plan Erickson has longstanding hypertension. He had DESTIN which has been resolved. He does not have any proteinuria. He is on angiotensin receptor ja and atenolol which is keeping his blood pressure at goal. He does not have any side effects or orthostatic symptoms with the medications. He avoids nonsteroidal anti-inflammatories and maintain good hydration. He is closely followed up by Dr. Schmitz for his high PSA. I did not make any medication changes today. Follow-up blood work ordered. Appointment given to be seen a year and unless there are any active issues. Answered all questions Orders: Orders Creatinine 06/09/24 I10 - Essential (primary) hypertension Electrolytes 06/09/24 I10 - Essential (primary) hypertension Blood Urea Nitrogen 06/09/24 I10 - Essential (primary) hypertension Coding Level of Care Code Est Pt Level 4 (13551) Diagnoses Primary hypertension I10 Hypertension type: primary hypertension
[2024-06-09 15:40] VITALS: BP 122/70; PULSE 66; O2SAT 95; BMI 28.9
== END 2024-06-09 16:14 | disposition home or self-care (01) ==
PROVIDERS: PCP Internal Medicine; Visit Provider Internal Medicine Nephrology
DX: I10 Essential (primary) hypertension (principal)
CPT/HCPCS: 99214

== ENCOUNTER → 2024-06-09 15:33 | Outpatient (BNVA) | payer MEDICARE, SELFPAY | PROVIDERS: PCP Internal Medicine; Visit Provider Internal Medicine Nephrology | DX: I10 Essential (primary) hypertension (principal) | CPT/HCPCS: 99212 ==

== ENCOUNTER 2025-03-14 13:55 | Outpatient (REF) | payer MEDICARE, SELFPAY ==
[2025-03-14 15:16] LABS: Prostate Specific Antigen 2.18 ng/mL (<0.05-4.0)
== END 2025-03-14 13:56 | disposition home or self-care (01) ==
LOC: HO.LAB 13:55
PROVIDERS: PCP Internal Medicine; Visit Provider Urology
DX: R97.20 Elevated prostate specific antigen [PSA] (principal); Z12.5 Encounter for screening for malignant neoplasm of prostate
CPT/HCPCS: 36415; 84153

== ENCOUNTER 2025-03-16 15:23 | Outpatient (AMB) | payer MEDICARE, SELFPAY ==
--- NOTE | 2025-03-16 15:25 | MHC.OFFVIS ---
Intake Visit Reasons: 1y/PSA(PSA?) Intake Note: Patient is Present for Telephone Follow Up For Urology Med: Finasteride, Sildenafil Antibiotic Allergy:None Blood Thinner:none Jute Bag Clipper Required: No Allergies No Known Allergies Allergy (Verified 03/16/25 15:26) HPI Comments Details: Erickson is a very pleasant male. He is a patient of Dr. Cage. He is seen for the following urologic conditions. - elevated PSA - lower urinary tract symptoms - erectile dysfunction Continue good response to sildenafil for erections would like refill Has been on finasteride for bladder outlet obstruction and elevated PSA. PSA continues to remain low. Follow yearly - takes Friday, Friday, Friday Follow-up 12 month Elevated PSA/Abnormal WILMER: Prior to medication nocturia x2 with weak stream He presents for further evaluation of elevated PSA. Current management is finasteride. Laboratory investigations include a total PSA evaluation 07/06 5.0 - 12/07 2.4, 05/07 2.8, 11/18 2.2, 12/08 2.2, 03/10 1.9, 03/11 2.2 Individualized Prostate Cancer Risk Calculator 5-10% high risk. Symptoms include incomplete emptying, weak stream, nocturia, and are worsening. Overall symptoms are moderate. Therapeutic plan will be continued surveillance - finasteride [facility] Medical History (Updated 06/10/24 @ 09:30 by Ozzie Muñoz MD) BPH (benign prostatic hyperplasia) Erectile dysfunction Anxiety Arthritis Elevated cholesterol HTN (hypertension) Surgical History Hx of excision of mass History of hydrocelectomy Hx of tonsillectomy H/O colonoscopy Social History Household Members: Spouse Patient Tobacco Use Status: Former Tobacco user Tobacco use type: Cigarette Review of Systems Const Denies chills and Denies fever(s) Card Reports no additional complaints and Denies syncope Resp Denies cough GI Denies abdominal pain and Denies heartburn Reports as per HPI and Denies change in libido Neuro Denies syncope Psych Denies change in libido Endo Denies change in libido Physical Exam Const General: cooperative, healthy appearing, comfortable and no acute distress Orientation/consciousness: patient oriented x3 HEENT Face and sinus: Yes normal facial exam Mouth: moist mucous membranes Neck Neck: Yes normal visual inspection, Yes full ROM and Yes trachea midline Chest Chest palpation & inspection: normal inspection of the chest Resp Effort & Inspection: normal respiratory effort, able to speak in complete sentences and no respiratory distress GI Inspection: Yes normal to inspection Back/Spine/Pelvis Cervical Spine: normal cervical lordosis Thoracic/Lumbar Spine: thoracic and lumbar spine normal to inspection Skin General skin exam: no rashes or lesions noted Neuro General: patient oriented x3, gait normal, tone normal and moves all extremities Extrem General: Yes normal to inspection and Yes capillary refill normal Assessment & Plan Assessment & Plan (1) Weak urinary stream: Code(s): R39.12 - Poor urinary stream Category: Medical (2) BPH w urinary obs/LUTS: Code(s): N40.1 - Benign prostatic hyperplasia with lower urinary tract symptoms; N13.8 - Other obstructive and reflux uropathy Category: Medical (3) Erectile dysfunction due to arterial insufficiency: Code(s): N52.01 - Erectile dysfunction due to arterial insufficiency Category: Medical Plan Twelve month follow-up PSA Orders: Orders Prostate Specific Antigen 12 Months N13.8 - Other obstructive and reflux uropathy, N40.1 - Benign prostatic hyperplasia with lower urinary tract symptoms Patient Instructions: This note is constructed using voice recognition software. While every effort has been made to ensure accuracy door to door sales representative errors may have been included. Imaging studies, laboratory and physical exam results were discussed and reviewed in detail. No major barriers to patient understanding were identified. An opportunity to ask questions regarding the treatment plan was provided. All questions were answered. The patient expressed understanding and agreement with the above treatment plan. The patient is aware they should contact our office by phone for worsening of their current condition or the appearance of new urologic symptoms. Compliance is encouraged with any medications and followup testing that is ordered. It is a privilege to participate in the urologic care of your patient. If you have any questions or concerns regarding treatment for the above conditions, or other urologic issues, please do not hesitate to contact me. The office telephone contact is [phone]. Sincerely, Dr Smith Schmitz MD, [facility] - Urology Compassionate Specialist Care for the Genitourinary System Coding Level of Care Code Est Pt Level 4 (17613) Complex EM visit Add On G2211 Diagnoses Weak urinary stream R39.12 BPH w urinary obs/LUTS N40.1; N13.8 Erectile dysfunction due to arterial insufficiency N52.01
--- OUTSIDE RECORDS SUMMARY | 2025-03-16 16:21 | XMS_ITS | Clinical Summary ---
Author Organization [facility] Address [address] [place] [address] Phone Care Team Providers Care Policy Value Calculator Name Role Phone Koko Cage MD Primary Care Provider [phone] Allergies No known active allergies Medications atenolol (TENORMIN) 50 MG tablet TAKE 3 TABLETS BY MOUTH DAILY 270 tablet 3 04/24/2021 Active atorvastatin (LIPITOR) 40 MG tablet Take 1 tablet by mouth 1 (one) time each day Active citalopram (CeleXA) 20 MG tablet Take 1 tablet by mouth 1 (one) time each day Active finasteride (PROSCAR) 5 MG tablet Take 1 tablet by mouth 1 (one) time each day Active losartan (COZAAR) 100 MG tablet Take 1 tablet by mouth 1 (one) time each day 12/19/2019 Active amLODIPine (NORVASC) 5 MG tablet Take 5 mg by mouth 1 (one) time each day 10/05/2022 Active sertraline (ZOLOFT) 100 MG tablet Take 100 mg by mouth 1 (one) time each day 09/24/2022 Active Active Problems Problem Noted Date Diagnosed Date Hypertension 10/30/2022 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 Essential hypertension 08/16/2021 Hyperkalemia 08/16/2021 Social History Tobacco Use Types Packs/Day Years Used Date Smoking Tobacco: Never Smokeless Tobacco: Never Tobacco Cessation:Counseling Given: Not Answered Alcohol Use Standard Drinks/Week Comments Yes 0 (1 standard drink = 0.6 oz pur e alcohol) Sex and Gender Information Value Date Recorded Sex Assigned at Not on file Legal Sex Male 4:55 PM EST Gender Identity Not on file Sexual Orientation Not on file Last Filed Vital Signs Vital Sign Reading Time Taken Comments Blood Pressure 138/84 12/11/2023 4:33 PM EST Pulse 61 12/11/2023 4:33 PM EST Temperature - - Respiratory Rate - - Oxygen Saturation - - Inhaled Oxygen Concentration - - Weight 93.4 kg (206 lb) 12/11/2023 4:33 PM EST Height 177.8 cm (5' 10 ) 03/08/2020 12:00 PM EDT Body Mass Index 29.56 03/08/2020 12:00 PM EDT Plan of Treatment Health Maintenance Due Date Last Done Comments Pneumococcal Vaccine: 50+ Ye ars (1 of 2 - PCV) 1969 Colorectal Cancer Screening: Annual FOBT 1999 Colorectal Cancer Screening: Colonoscopy 1999 Colorectal Cancer Screening: Sigmoidoscopy 1999 Influenza Vaccine (Season Ended) 2025 Hepatitis B Vaccine Aged Out No longe r eligible based on patient's age to complete this topic Insurance [facility] Medicare [facility] Medicare Care Teams Policy Value Calculator Relationship Specialty Start Date End Date Koko Cage MD [address] [place] [phone] PCP - General 11/27/20
== END 2025-03-16 15:44 | disposition home or self-care (01) ==
LOC: HO.HUSH 15:23
PROVIDERS: PCP Internal Medicine; Visit Provider Urology
DX: N40.1 Benign prostatic hyperplasia with lower urinary tract symptoms (principal); R39.12 Poor urinary stream; N13.8 Other obstructive and reflux uropathy; N52.01 Erectile dysfunction due to arterial insufficiency
CPT/HCPCS: 99214; G2211

== ENCOUNTER → 2025-03-16 15:23 | Outpatient (BNVA) | payer MEDICARE, SELFPAY | PROVIDERS: PCP Internal Medicine; Visit Provider Urology | DX: N40.1 Benign prostatic hyperplasia with lower urinary tract symptoms (principal); R39.12 Poor urinary stream; N13.8 Other obstructive and reflux uropathy; N52.01 Erectile dysfunction due to arterial insufficiency | CPT/HCPCS: 99212 ==

== ENCOUNTER 2025-06-06 14:27 | Outpatient (REF) | payer MEDICARE, SELFPAY ==
--- OUTSIDE RECORDS SUMMARY | 2025-06-06 15:20 | XMS_ITS | Patient Health Record ---
Author Organization [facility] Address [address] [place] [address] Care Team Providers Care Truck Hop Name Role Phone Koko Cage MD Primary Care Provider Ty Chapman Jr Unavailable Allergies No Known Allergies Reason For Referral No Information Medications Medication SIG (Take, Route, Frequency, Duration) Notes [...] tablet Orally Twic e a day Active Immunizations Vaccine Route Administration Date Status Comme nts Influenza Unknown 10/07/2023 Administered Plan Of Treatment Future Test Test Name Order Date COLONOSCOPY 08/13/2013 COLONOSCOPY 04/07/2024 Insurance Providers Payer Name Payer Address Payer Phone Subscriber Number Group Number Insured Name Patient Relationship to Insured Coverage Start Date Coverage End Date MEDICARE OF [place] [address] [place] [address] [phone] [id number] VANESSA MARTIN Self - patient is the insured [employer] SUPP[place]MENT [place] [address] [place] [address] [id number] VANESSA MARTIN Self - patient is the insured Medical (General) History Medical History History ICD Code Hypertension Hyperlipidemia Anxiety Arthritis Allergies Colonoscopy 2013 normal, ten-year follow up Elevated PSA Surgical History Surgery Date(Month/Year) tonsillectomy hydrocele repair growth on chest removed
--- OUTSIDE RECORDS SUMMARY | 2025-06-06 15:20 | XMS_ITS | Clinical Summary ---
Author Organization [facility] Address [address] [place] [address] Phone Care Team Providers Care Roller Name Role Phone Koko Cage MD Primary Care Provider [phone] Allergies No known active allergies Medications atenolol [...] Colorectal Cancer Screening: Sigmoidoscopy 1999 Influenza Vaccine (#1) 2025 Hepatitis B Vaccine Aged Out No longe r eligible based on patient's age to complete this topic Insurance [facility] Medicare [facility] Medicare Care Teams Roller Relationship Specialty Start Date End Date Koko Cage MD [address] [place] [id number] PCP - General 11/27/20
[2025-06-06 15:31] LABS: Anion Gap 15 (12-20); Blood Urea Nitrogen 17 mg/dL (9-16); Carbon Dioxide 22 mmol/L (22-29); Chloride 109 mmol/L (96-108); Estimated Glomerular Filt Rate > 60; Potassium 4.1 mmol/L (3.3-5.1); Sodium 142 mmol/L (135-145)
== END 2025-06-06 14:28 | disposition home or self-care (01) ==
LOC: HO.LAB 14:27
PROVIDERS: PCP Internal Medicine; Visit Provider Internal Medicine Nephrology
DX: I10 Essential (primary) hypertension (principal)
CPT/HCPCS: 36415; 80051; 82565; 84520

== ENCOUNTER 2025-06-10 15:01 | Outpatient (AMB) | payer MEDICARE, SELFPAY ==
--- OUTSIDE RECORDS SUMMARY | 2025-06-10 15:04 | XMS_ITS | Patient Health Record ---
Author Organization [facility] Address [address] [place] [address] Care Team Providers Care Microbiological Laboratory Technician Name Role Phone Koko Cage MD Primary Care Provider Ty Chapman Jr Unavailable [phone] Allergies No Known Allergies Reason For Referral [...] OF [place] [address] [place] [address] [id number] VANESSA MARTIN Self - patient is the insured [employer] SUPPLEMENT [place] [address] [place] [address] [phone] [id number] VANESSA MARTIN Self - patient is the insured Medical (General) History Medical History History ICD Code Hypertension Hyperlipidemia Anxiety Arthritis Allergies Colonoscopy 2013 normal, ten-year follow up Elevated PSA Surgical History Surgery Date(Month/Year) tonsillectomy hydrocele repair growth on chest removed
--- OUTSIDE RECORDS SUMMARY | 2025-06-10 15:04 | XMS_ITS | Clinical Summary ---
Author Organization [facility] Address [address] [place] [address] Phone Care Team Providers Care Customer Sales Specialist Name Role Phone Koko Cage MD Primary Care Provider [phone] Allergies No known active allergies Medications atenolol [...] patient's age to complete this topic Insurance [facility] Medicare [facility] Medicare Care Teams Customer Sales Specialist Relationship Specialty Start Date End Date Koko Cage MD [address] [place] [phone] PCP - General 11/27/20
--- NOTE | 2025-06-10 15:09 | HO.NEPHOV ---
Vital Signs 06/10/25 15:11 Height 5 ft 10 in Weight 205 lb 8 oz BMI 29.5 BP 130/80 Blood Pressure Location Lt brachial Position Sitting Pulse 69 Pulse Source Pulse Oximeter Pulse Oximetry (%) 95 Oxygen Delivery Method Room Air Intake Visit Reasons: 1 yr fu w/ labs-Conf Public Health Nurse Required: No Accompanied by: Self / Same As Patient Allergies No Known Allergies Allergy (Verified 06/10/25 15:11) HPI Comments Details: Erickson was seen in the office in follow-up of his hypertension. He has history of DESTIN which has been resolved. He has high PSA which has been treated in follow-up by Dr. Schmitz. He is quite active. His blood pressure is currently well controlled on atenolol 150 mg daily along with valsartan 320 mg daily. He denies any chest pain, shortness of breath, proximal nocturnal dyspnea, orthopnea, pedal edema, dizziness, hematuria or orthostatic symptoms. He maintains good hydration and avoids nonsteroidal anti-inflammatories. There were no active issues at the time of this office visit. He is closely monitored by his primary care physician [facility] Medical History (Updated 06/10/24 @ 09:30 by Ozzie Muñoz MD) BPH (benign prostatic hyperplasia) Erectile dysfunction Anxiety Arthritis Elevated cholesterol HTN (hypertension) Surgical History Hx of excision of mass History of hydrocelectomy Hx of tonsillectomy H/O colonoscopy Social History Household Members: Spouse Patient Tobacco Use Status: Former Tobacco user Tobacco use type: Cigarette Review of Systems Const All systems reviewed & are unremarkable except as noted in HPI and below Physical Exam Const General: comfortable and no acute distress Orientation/consciousness: patient oriented x3 HEENT Head: Yes normocephalic Mouth: Normal oral and palatal mucosa present Eyes EOM: EOMs intact bilaterally Neck Neck: Yes supple Resp Auscultation: clear to auscultation bilaterally Cardio Jugular venous distension: no JVD Rate: regular rate GI Palpation (GI): Soft to palpation Auscultation: normal bowel sounds General: Yes no CVA tenderness Back/Spine/Pelvis Back: no CVA tenderness Skin General skin exam: no rashes or lesions noted Neuro General: patient oriented x3 and moves all extremities Extrem General: Yes no pedal edema Assessment & Plan Assessment & Plan (1) Hypertension: Code(s): I10 - Essential (primary) hypertension Category: Medical Qualifiers: Hypertension type: primary hypertension Qualified Code(s): I10 - Essential (primary) hypertension Plan Erickson has longstanding hypertension. He had DESTIN which has been resolved. He does not have any proteinuria. He is on angiotensin receptor ja and atenolol which is keeping his blood pressure at goal. He does not have any side effects or orthostatic symptoms with the medications. He avoids nonsteroidal anti-inflammatories and maintain good hydration. He is closely followed up by Dr. Schmitz for his high PSA. I did not make any medication changes today. Follow-up blood work ordered. Appointment given to be seen a year and unless there are any active issues. Answered all questions Orders: Orders Protein Creatinine Ratio, Ur 1 Year I10 - Essential (primary) hypertension Electrolytes 1 Year I10 - Essential (primary) hypertension Creatinine 1 Year I10 - Essential (primary) hypertension Blood Urea Nitrogen 1 Year I10 - Essential (primary) hypertension Coding Level of Care Code Est Pt Level 4 (86642) Diagnoses Primary hypertension I10 Hypertension type: primary hypertension
[2025-06-10 15:11] VITALS: BP 130/80; PULSE 69; O2SAT 95; BMI 29.5
== END 2025-06-10 15:24 | disposition home or self-care (01) ==
LOC: HO.HKA 15:01
PROVIDERS: PCP Internal Medicine; Visit Provider Internal Medicine Nephrology
DX: I10 Essential (primary) hypertension (principal)
CPT/HCPCS: 99214

== ENCOUNTER → 2025-06-10 15:01 | Outpatient (BNVA) | payer MEDICARE, SELFPAY | PROVIDERS: PCP Internal Medicine; Visit Provider Internal Medicine Nephrology | DX: I10 Essential (primary) hypertension (principal) | CPT/HCPCS: 99212 ==